=== PATIENT | female | born 1945 | race Caucasian/White ===

== ENCOUNTER 2020-10-19 17:23 | Inpatient (IN) | payer MEDICARE ==
[~2020-10-19 17:23] MED LIST: Heparin 1,000 UNITS/ML VIAL ONE; Iopamidol-370 76% 500 ML 1 ML ONE
--- NOTE | 2020-10-19 17:52 | RAD ---
Chest 2 views HISTORY: Cough. Dyspnea. FINDINGS: No comparison. Cardiac silhouette is predominantly obscured by marked elevation left hemidiaphragm and diaphragmatic hernia favored to contain a portion of the colon. Hemostasis clips evident within the upper abdomen and hiatal hernia. Vertically oriented tube of gas at the upper mediastinum has the appearanc e of gaseous distention of the esophagus or sabina-esophagus. There is prominent rightward convex rotatory scoliotic curvature of the thoracic spine and mediastinu m. Pulmonary vasculature are within normal limits. Subtle ill-defined patchy predominantly peripheral ar eas of infiltrate involve each lung. No lobar consolidation. No evidence of pneumothorax. IMPRESSION : Subtle patchy bilateral infiltrates. Correlate for multifocal viral pneumonitis. Postoperative changes with the appearance of gastric pull-through/sabina-esophagus, with suspected super imposed hiatal hernia.
[2020-10-19] MEDS ORDERED: cefTRIAXone\\ROCEPHIN 1 GM VIAL ONE (18:47)
[2020-10-19] MEDS ORDERED: Dexamethasone 4 mg/ml Vial ONE (18:47)
[2020-10-19 18:56] LABS: #Lymphocytes 1.8 thou/uL (1.20-3.40); #Monocytes 1.1 thou/uL (0.11-0.59); #Neutrophils 5.2 thou/uL (1.40-6.50); %Basophils 0.2 % (0.0-1.0); %Eosinophils 0.1 % (0.0-10.0); %Lymphocytes 22.7 % (21.0-51.0); Hemoglobin 13.2 g/dL (12.0-16.0); Mean Corpuscular HGB CONC 32.5 g/dL (32.0-36.0); Mean Corpuscular Hemoglobin 30.6 pg (27.0-31.0); Mean Platelet Volume 9.3 fL (7.4-10.4); Platelet Count 246 thou/uL (130-400); RBC Distribution Width 12.2 % (11.5-14.5); Red Blood Cell (RBC) Count 4.33 mill/uL (4.20-5.40); White Blood Cell (WBC) Count 8.1 thou/uL (4.8-10.8)
[2020-10-19] MEDS ORDERED: Albuterol 200 PUFF (6.7GM INHALER) ONE (19:03)
[2020-10-19 19:19] LABS: ALT (SGPT) 22 U/L (8-55); AST (SGOT) 42 U/L (5-34); Albumin 3.8 g/dL (3.4-4.8); Alkaline Phosphatase 142 U/L (40-110); Anion Gap 14 mmol/L (10-20); BUN (Urea Nitrogen) 10 mg/dL (9.8-20.1); Bilirubin, Total 0.4 mg/dL (0.2-1.2); Calc. Creatinine Clearance 0 mL/min (70-130); Calcium 9.5 mg/dL (7.8-10.44); Carbon Dioxide 27 mmol/L (23-31); Chloride 97 mmol/L (98-107); Globulin 4.9 g/dL (2.4-3.5); Glucose 139 mg/dL (83-110); Potassium 3.9 mmol/L (3.5-5.1); Protein, Total 8.7 g/dL (6.0-8.3); Sodium 134 mmol/L (136-145)
[2020-10-19] MEDS ORDERED: Ondansetron PF 4 MG/2 ML Vial ONE (20:05)
--- NOTE | 2020-10-19 20:30 | CT ---
CT angiogram chest: 10/19/2020 COMPARISON: None HISTORY: Pneumonia, hypoxia, shortness of breath, history of stomach cancer and esophageal cancer TECHNIQUE: Axial CT imaging at 2.5 mm intervals through the chest with IV contrast using CT angiogram protocol. Coronal and sagittal 3-D reformatted imaging obtained. FINDINGS: The imaged upper abdomen demonstrates no acute findings. There is a large hiatal hernia whi ch includes a significant portion of the transverse colon. The patient appears status post esophagectomy with a gastric pull-through procedure. There is nodularity in the region of the adrenal gland on the left, best seen on axial image 131, wit h nonspecific lobulated adrenal lesion measuring up to 1.9-2.0 cm. Adjacent mildly prominent lymph nodes cannot be excluded. There is distention of the gastric pull-through, with mild internal debris. No axillary lymphadenopathy is seen. No discrete mediastinal or hilar lymphadenopathy. No significant pleural, pericardial, or mediastinal fluid is seen. There is no pulmonary arterial filling defect seen to suggest the presence of acute pulmonary arteria l embolism. There is marked elevation of the left hemidiaphragm. There is partial consolidation/collapse involvin g the left lower lobe abutting the elevated left hemidiaphragm. In addition, there are numerous areas of conspicuous peripheral groundglass opacity including the right lower lobe, right middle lobe , and bilateral upper lobes, suspicious for bilateral Covid pneumonia in the proper clinical setting. Review of the osseous structures demonstrates no worrisome lytic or blastic bone lesions. IMPRESSION: Postoperative changes consistent with esophagectomy and gastric pull-through procedure. N o evidence for acute pulmonary arterial embolism. Partial consolidation of the left lower lobe may signify left lower lobe pneumonia, aspiration, or atelectasis. In addition, there are extensive bilat eral conspicuous areas of peripheral groundglass opacity most concerning for extensive bilateral Covid pneumonia. Clinical correlation is essential. Probable left adrenal nodule, not optimally assessed on this exam. Correlation with prior imaging is advised. No comparison imaging is available at this time.
[2020-10-19 22:20] LABS: SARS-CoV-2 NAA Rapid Test DETECTED (NotDetected)
[2020-10-20] MEDS ORDERED: HYDROcodone/Acetaminophen 5/325 mg Tablet PO PRN (00:45)
[2020-10-20] MEDS ORDERED: cloNIDine 0.1 MG TAB PO PRN (00:45)
[2020-10-20] MEDS ORDERED: Electrolyte Replacement Protocol 1 EACH FS PRN (00:45)
[2020-10-20] MEDS ORDERED: Morphine 2 MG/ML VIAL SLOW IVP PRN (00:45)
[2020-10-20] MEDS ORDERED: Ondansetron ODT 4 MG TAB SL PRN (00:45)
[2020-10-20] MEDS ORDERED: Promethazine HCl 12.5 MG in Sodium Chloride 0.9% 50 ML IVPB PRN (00:45)
[2020-10-20] MEDS ORDERED: Labetalol HCl 100 MG/20 ML VIAL SLOW IVP PRN (00:45)
[2020-10-20] MEDS ORDERED: Ondansetron PF 4 MG/2 ML Vial IVP PRN (00:45)
[2020-10-20] MEDS ORDERED: hydrALAZINE 20 MG/ML VIAL SLOW IVP PRN (00:45)
--- NOTE | 2020-10-20 00:47 | PDOC.HHP ---
Hospitalist HPI - History of Present Illness Shortness of breath History of Present Illness: Patient is a 74 year old female with PMH HTN, arrhythmia, stomach/esophagus cancer who presents to ED for shortness of breath. Patient originally developed symptoms of cough 2 weeks ago, she went to several doctors, had a chest X ray and diagnosed with pneumonia, covid was negative at that time, she had a course of azithromycin and did not improve, she developed worsening shortness of breath and came here, now on NC and satting well. Here, CXR reveals bilateral patchy infiltrates, LLL consolidation, and then had a CTA chest also w/ LLL consolidation and bilateral groundglass opacities concerning for covid. patient admitted on suspicion of covid pneumonia and with hypoxia, covid test pending. given steroid, inhaler, abx in ED. Hospitalist ROS - Review of Systems Constitutional: reports: fever, chills, sweats, weakness, malaise Eyes: denies: pain, vision change, conjunctivae inflammation, eyelid inflammation, redness, other ENT: denies: ear pain, ear discharge, nose pain, nose discharge, nose congestion, mouth pain, mouth swelling, throat pain, throat swelling, other Respiratory: reports: cough, shortness of breath, pleuritic pain, sputum. denies: dry, hemoptysis, SOB with excertion, wheezing, other Cardiovascular: denies: chest pain, palpitations, orthopnea, paroxysmal noc. dyspnea, edema, light headedness, other Gastrointestinal: denies: nausea, vomiting, abdominal pain, diarrhea, constipation, melena, hematochezia, other Genitourinary: denies: dysuria, frequency, incontinence, hematuria, retention, other Musculoskeletal: denies: neck pain, shoulder pain, arm pain, back pain, hand pain, leg pain, foot pain, other Skin: denies: rash, lesions, jayshree, bruising, other Neurological: denies: weakness, numbness, incoordination, change in speech, confusion, seizures, other All other systems reviewed; all pertinent +/- noted in HPI/Subj - Medication Medications: azithromycin 250mg po daily compazine 10mg PO TID PRN nausea candesartan hctz 16-12.5mg daily sotalol 80mg PO BID Hospitalist History - Past Medical History Other Medical History: HTN, arrhythmia, stomach/esophagus cancer - Past Surgical History Other Surgical History: Surgery for stomach and esophagus cancer Surgical history of cholecystectomy Surgical history of hysterectomy - Family History Family History: reports: no pertinent history - Social History Alcohol: reports: None Drugs: reports: none - Exam General Appearance: NAD, awake alert Eye: PERRL, anicteric sclera ENT: normocephalic atraumatic, no oropharyngeal lesions, moist mucosa Neck: supple, symmetric, no JVD, no thyromegaly, no lymphadenopathy, no carotid bruit Heart: RRR, no murmur, no gallops, no rubs, normal peripheral pulses Respiratory: CTAB, no wheezes, no rales, no ronchi, normal chest expansion, no tachypnea, normal percussion Gastrointestinal: soft, non-tender, non-distended, normal bowel sounds, no palpable masses, no hepatomegaly, no splenomegaly, no bruit Extremities: no cyanosis, no clubbing, no edema Skin: normal turgor, no lesions, no rashes Neurological: cranial nerve grossly intact, normal sensation to touch, no weakness, no focal deficits, no new deficit Musculoskeletal: normal tone, normal strength, no muscle wasting Psychiatric: normal affect, normal behavior, A&O x 3 Hospitalist Results - Labs Result Diagrams: 10/20/20 05:05 10/19/20 Unknown Lab results: WBC 8.1 thou/uL (4.8-10.8) 10/19/20 Unknown Hgb 13.2 g/dL (12.0-16.0) 10/19/20 Unknown Hct 40.7 % (36.0-47.0) 10/19/20 Unknown MCV 94.0 fL (78.0-98.0) 10/19/20 Unknown Plt Count 246 thou/uL (130-400) 10/19/20 Unknown Neutrophils % 64.0 % (42.0-75.0) 10/19/20 Unknown Sodium 134 mmol/L (136-145) L 10/19/20 Unknown Potassium 3.9 mmol/L (3.5-5.1) 10/19/20 Unknown Chloride 97 mmol/L (98-107) L 10/19/20 Unknown Carbon Dioxide 27 mmol/L (23-31) 10/19/20 Unknown BUN 10 mg/dL (9.8-20.1) 10/19/20 Unknown Creatinine 0.73 mg/dL (0.6-1.1) 10/19/20 Unknown Glucose 139 mg/dL (83-110) H 10/19/20 Unknown Lactic Acid 1.5 mmol/L (0.5-2.2) 10/19/20 19:39 Calcium 9.5 mg/dL (7.8-10.44) 10/19/20 Unknown Total Bilirubin 0.4 mg/dL (0.2-1.2) 10/19/20 Unknown AST 42 U/L (5-34) H 10/19/20 Unknown ALT 22 U/L (8-55) 10/19/20 Unknown Alkaline Phosphatase 142 U/L (40-110) H 10/19/20 Unknown Serum Total Protein 8.7 g/dL (6.0-8.3) H 10/19/20 Unknown Albumin 3.8 g/dL (3.4-4.8) 10/19/20 Unknown Additional comment: VITAL SIGNS SunOct 19, 2020 17:25 VETO Em, Matilda BP: 213/93 Pulse: 93 Resp: 20 Temp: 98.4 (Oral) Pain: 5 O2 sat: 94 on (Room Air) Time: 10/19/2020 17:25. labs, imaging reports, ED documents reviewed XR Chest Pa & Lat STANDARD Observe DT: SunOct 19, 2020 17:29 CXR2 Chest 2 views HISTORY: Cough. Dyspnea. FINDINGS: No comparison. Cardiac silhouette is predominantly obscured by marked elevation left hemidiaphragm and diaphragmatic hernia favored to contain a portion of the colon. Hemostasis clips evident within the upper abdomen and hiatal hernia. Vertically oriented tube of gas at the upper mediastinum has the appearanc e of gaseous distention of the esophagus or sabina-esophagus. There is prominent rightward convex rotatory scoliotic curvature of the thoracic spine and mediastinu m. Pulmonary vasculature are within normal limits. Subtle ill-defined patchy predominantly peripheral ar eas of infiltrate involve each lung. No lobar consolidation. No evidence of pneumothorax. IMPRESSION : Subtle patchy bilateral infiltrates. Correlate for multifocal viral pneumonitis. Postoperative changes with the appearance of gastric pull-through/sabina-esophagus, with suspected super imposed hiatal hernia. . RADIOLOGY SunOct 19, 2020 18:39 YURIY Koenig William XR Chest Pa & Lat STANDARD Observe DT: SunOct 19, 2020 17:29 CXR2 Chest 2 views HISTORY: Cough. Dyspnea. FINDINGS: No comparison. Cardiac silhouette is predominantly obscured by marked elevation left hemidiaphragm and diaphragmatic hernia favored to contain a portion of the colon. Hemostasis clips evident within the upper abdomen and hiatal hernia. Vertically oriented tube of gas at the upper mediastinum has the appearanc e of gaseous distention of the esophagus or sabina-esophagus. There is prominent rightward convex rotatory scoliotic curvature of the thoracic spine and mediastinu m. Pulmonary vasculature are within normal limits. Subtle ill-defined patchy predominantly peripheral ar eas of infiltrate involve each lung. No lobar consolidation. No evidence of pneumothorax. IMPRESSION : Subtle patchy bilateral infiltrates. Correlate for multifocal viral pneumonitis. Postoperative changes with the appearance of gastric pull-through/sabina-esophagus, with suspected super imposed hiatal hernia. . RADIOLOGY SunOct 19, 2020 21:08 YURIY Koenig William CTA Angio Chest W WO Con Observe DT: SunOct 19, 2020 18:[address] angiogram chest: 10/19/2020 COMPARISON: None HISTORY: Pneumonia, hypoxia, shortness of breath, history of stomach cancer and esophageal cancer TECHNIQUE: Axial CT imaging at 2.5 mm intervals through the chest with IV contrast using CT angiogram protocol. Coronal and sagittal 3-D reformatted imaging obtained. FINDINGS: The imaged upper abdomen demonstrates no acute findings. There is a large hiatal hernia whi ch includes a significant portion of the transverse colon. The patient appears status post esophagectomy with a gastric pull-through procedure. There is nodularity in the region of the adrenal gland on the left, best seen on axial image 131, wit h nonspecific lobulated adrenal lesion measuring up to 1.9-2.0 cm. Adjacent mildly prominent lymph nodes cannot be excluded. There is distention of the gastric pull-through, with mild internal debris. No axillary lymphadenopathy is seen. No discrete mediastinal or hilar lymphadenopathy. No significant pleural, pericardial, or mediastinal fluid is seen. There is no pulmonary arterial filling defect seen to suggest the presence of acute pulmonary arteria l embolism. There is marked elevation of the left hemidiaphragm. There is partial c onsolidation/collapse involvin g the left lower lobe abutting the elevated left hemidiaphragm. In addition, there are numerous areas of conspicuous peripheral groundglass opacity including the right lower lobe, right middle lobe , and bilateral upper lobes, suspicious for bilateral Covid pneumonia in the proper clinical setting. Review of the osseous structures demonstrates no worrisome lytic or blastic bone lesions. IMPRESSION: Postoperative changes consistent with esophagectomy and gastric pull-through procedure. N o evidence for acute pulmonary arterial embolism. Partial consolidation of the left lower lobe may signify left lower lobe pneumonia, aspiration, or atelectasis. In addition, there are extensive bilat eral conspicuous areas of peripheral groundglass opacity most concerning for extensive bilateral Covid pneumonia. Clinical correlation is essential. Probable left adrenal nodule, not optimally assessed on this exam. Correlation with prior imaging is advised. No comparison imaging is available at this time. . Hospitalist H&P A/P - Plan Plan: Patient is a 74 year old female with PMH HTN, arrhythmia, stomach/esophagus cancer who presents to ED for shortness of breath. # bilateral pnuemonia # covid 19 infection Patient originally developed symptoms 2 weeks ago, had a chest X ray and diagnosed with pneumonia, covid was negative at that time, she had a course of azithromycin and did not improve, she developed worsening shortness of breath and came here, now on NC and satting well. Here, CXR reveals bilateral patchy infiltrates, LLL consolidation, and then had a CTA chest also w/ LLL consolidation and bilateral groundglass opacities concerning for covid. patient admitted on suspicion of covid pneumonia and with hypoxia, covid test pending. given steroid, inhaler, abx in ED. - admit to floor - follow up covid 19 test -> POSITIVE - start IV dexamethasone - start IV levaquin - wean o2 as tolerated # HTN - continue home medications # history of arrhtyhmia - cardiac surgeon - continue sotalol DVT/GI ppx
[2020-10-20] MEDS ORDERED: Sotalol HCl 80 MG TAB PO SCH (01:15)
[2020-10-20] MEDS ORDERED: Sotalol HCl 80 MG TAB ONE (01:33)
[2020-10-20] MEDS ORDERED: Azithromycin 500 MG in Sodium Chloride 0.9% 250 ML 250 ML IVPB SCH (02:00)
[2020-10-20 05:51] LABS: #Lymphocytes 0.6 thou/uL (1.20-3.40); #Monocytes 0.3 thou/uL (0.11-0.59); #Neutrophils 1.4 thou/uL (1.40-6.50); %Basophils 0.6 % (0.0-1.0); %Eosinophils 0.2 % (0.0-10.0); %Lymphocytes 25.6 % (21.0-51.0); %Monocytes 12.7 % (0.0-10.0); %Neutrophils 60.9 % (42.0-75.0); Hemoglobin 12.2 g/dL (12.0-16.0); Mean Corpuscular HGB CONC 32.5 g/dL (32.0-36.0); Mean Corpuscular Hemoglobin 30.5 pg (27.0-31.0); Mean Corpuscular Volume 93.9 fL (78.0-98.0); Mean Platelet Volume 9.2 fL (7.4-10.4); Platelet Count 164 thou/uL (130-400); RBC Distribution Width 12.1 % (11.5-14.5); Red Blood Cell (RBC) Count 3.99 mill/uL (4.20-5.40); White Blood Cell (WBC) Count 2.2 thou/uL (4.8-10.8)
[2020-10-20] MEDS: Hydrochlorothiazide 25 MG TAB PO SCH ×2 (08:38→20:41)
[2020-10-20] MEDS: Losartan 25 MG TAB PO SCH ×2 (08:43→20:42)
[2020-10-20] MEDS: Famotidine 20 MG TAB PO SCH ×2 (08:45→20:40)
[2020-10-20] MEDS: Polyethylene Glycol 3350 17 GM Packet PO SCH ×2 (08:45→11:26)
[2020-10-20] MEDS: Sotalol HCl 80 MG TAB PO SCH ×2 (08:45→20:42)
[2020-10-20 09:13] LABS: Chloride 100 mmol/L (98-107); Potassium 4.1 mmol/L (3.5-5.1); Sodium 137 mmol/L (136-145)
[2020-10-20 09:14] LABS: Calcium 8.9 mg/dL (7.8-10.44); Glucose 185 mg/dL (83-110)
[2020-10-20 09:16] LABS: Anion Gap 14 mmol/L (10-20); Carbon Dioxide 27 mmol/L (23-31)
[2020-10-20 09:18] LABS: BUN (Urea Nitrogen) 11 mg/dL (9.8-20.1); Calc. Creatinine Clearance 0 mL/min (70-130)
[2020-10-20 09:20] LABS: Magnesium 1.9 mg/dL (1.6-2.6)
[2020-10-20] MEDS ORDERED: Magnesium 2 GM/50 ML 2 GM in Premix Bag 1 BAG IVPB SCH (10:15)
[2020-10-20] MEDS: Guaifenesin DM 100-10/5 ML UDCUP PO PRN (11:55)
[2020-10-20] MEDS ORDERED: Pharmacy to Dose REMDESIVIR IVPB PRN (13:44)
--- NOTE | 2020-10-20 14:03 | PDOC.HOSPP ---
- Subjective Encounter Date: 10/20/20 Encounter Time: 11:20 Subjective: pt up in bed no complains - Objective Vital Signs & Weight: Vital Signs (12 hours) Temp Pulse Pulse Pulse Resp BP BP 10/20/20 12:25 68 134/64 10/20/20 12:00 97.8 F 58 L 18 10/20/20 09:58 70 68 149/76 H 176/74 H 10/20/20 08:45 98.2 F 63 20 10/20/20 04:00 98.0 F 63 16 BP BP Pulse Ox Pulse Ox Pulse Ox 10/20/20 12:25 98 10/20/20 12:00 172/76 H 99 10/20/20 09:58 94 L 92 L 10/20/20 08:45 178/75 H 93 L 10/20/20 04:00 137/63 93 L Weight Weight 2.31 oz I&O: 10/19/20 10/20/20 10/21/20 06:59 06:59 06:59 Intake Total 240 Output Total 400 Balance -160 Result Diagrams: 10/20/20 05:05 10/20/20 08:41 Hospitalist ROS - Review of Systems Cardiovascular: denies: chest pain, palpitations, orthopnea, paroxysmal noc. dyspnea, edema, light headedness, other Gastrointestinal: denies: nausea, vomiting, abdominal pain, diarrhea, constipation, melena, hematochezia, other Genitourinary: denies: dysuria, frequency, incontinence, hematuria, retention, other - Medication Medications: Active Medications Generic Name Dose Route Start Last Admin Trade Name Freq PRN Reason Stop Dose Admin Famotidine 20 mg 10/20/20 09:00 10/20/20 08:45 Famotidine 20 Mg Tab PO 20 mg BID GREGORIO Administration Guaifenesin/Dextromethorphan 15 ml 10/20/20 00:45 10/20/20 11:55 Guaifenesin Dm 100-10/5 Ml Udcup PO 15 ml Q4H PRN Administration Cough Hydrochlorothiazide 12.5 mg 10/20/20 09:00 10/20/20 08:38 Hydrochlorothiazide 25 Mg Tab PO 12.5 mg BID GREGORIO Administration Doxycycline Hyclate 100 mg/ 100 mls @ 100 mls/hr 10/20/20 10:00 10/20/20 11:16 Sodium Chloride IVPB 100 mls 1000,2200 GREGORIO Administration Losartan Potassium 50 mg 10/20/20 09:00 10/20/20 08:43 Losartan 25 Mg Tab PO 50 mg BID GREGORIO Administration Polyethylene Glycol 17 gm 10/20/20 09:00 10/20/20 11:26 Polyethylene Glycol 3350 17 Gm Packet PO Not Given DAILY GREGORIO Sotalol HCl 80 mg 10/20/20 09:00 10/20/20 08:45 Sotalol Hcl 80 Mg Tab PO 80 mg BID GREGORIO Administration - Exam Heart: negative: RRR, no murmur, no gallops, no rubs, normal peripheral pulses, irregular, diminshed peripheral pulses, murmur present, II/IV, III/IV Respiratory: negative: CTAB, no wheezes, no rales, no ronchi, normal chest expansion, no tachypnea, normal percussion, rales, rhonchi, tachypneic, wheezes Gastrointestinal: negative: soft, non-tender, non-distended, normal bowel sounds, no palpable masses, no hepatomegaly, no splenomegaly, no bruit, no guarding, no rigidity, tender to palpation, distended, diminished bowl sounds, voluntary guarding Extremities: negative: no cyanosis, no clubbing, no edema, 1+ LE edema, 2+ LE edema, clubbing Hosp A/P (1) Acute respiratory failure with hypoxia Code(s): J96.01 - ACUTE RESPIRATORY FAILURE WITH HYPOXIA Status: Acute (2) COVID-19 Code(s): U07.1 - COVID-19 Status: Acute (3) Pneumonia Code(s): J18.9 - PNEUMONIA, UNSPECIFIED ORGANISM Status: Acute (4) HTN (hypertension) Code(s): I10 - ESSENTIAL (PRIMARY) HYPERTENSION Status: Acute - Plan Spoke with patient she states that she has had 3 Covid negative test. Her last test was Sunday of last week. She states that she has been treated with azithromycin for pneumonia. I spoke with the patient's son updated him that she meets the criteria for remdesivir since she was negative last week Sunday. Patient's daughter that she was living with is currently positive and she was tested last week Sunday. Side effects discussed with the patient.
[2020-10-20] MEDS ORDERED: REMDESIVIR (EUA) 200 MG in Sodium Chloride 0.9% 250 ML 210 ML IV SCH (16:00)
[2020-10-20] MEDS: Dexamethasone 4 mg/ml Vial SLOW IVP SCH (16:26)
[2020-10-20] MEDS: Acetaminophen 325 MG TAB PO PRN (18:31)
[2020-10-20] MEDS: Enoxaparin Sodium 40 MG/0.4 ML SYRINGE SC SCH ×2 (20:40→21:04)
[2020-10-20] MEDS ORDERED: Azithromycin 500 MG in Syringe 0 ML IVPB SCH (21:00)
[2020-10-20] MEDS ORDERED: cefTRIAXone\\ROCEPHIN 1 GM in Sodium Chloride 0.9% 100 ML IVPB SCH (21:00)
[2020-10-21 05:34] LABS: #Lymphocytes 0.7 thou/uL (1.20-3.40); #Monocytes 0.6 thou/uL (0.11-0.59); #Neutrophils 4.4 thou/uL (1.40-6.50); %Lymphocytes 12.2 % (21.0-51.0); %Monocytes 10.7 % (0.0-10.0); Hemoglobin 11.8 g/dL (12.0-16.0); Mean Corpuscular HGB CONC 32.7 g/dL (32.0-36.0); Mean Corpuscular Hemoglobin 30.7 pg (27.0-31.0); Mean Corpuscular Volume 93.7 fL (78.0-98.0); Mean Platelet Volume 9.2 fL (7.4-10.4); Platelet Count 172 thou/uL (130-400); Red Blood Cell (RBC) Count 3.85 mill/uL (4.20-5.40); White Blood Cell (WBC) Count 5.7 thou/uL (4.8-10.8)
[2020-10-21 06:00] LABS: Anion Gap 14 mmol/L (10-20); BUN (Urea Nitrogen) 14 mg/dL (9.8-20.1); Calc. Creatinine Clearance 0 mL/min (70-130); Carbon Dioxide 29 mmol/L (23-31); Chloride 100 mmol/L (98-107); Glucose 137 mg/dL (83-110); Magnesium 1.9 mg/dL (1.6-2.6); Sodium 139 mmol/L (136-145)
[2020-10-21] MEDS: Sotalol HCl 80 MG TAB PO SCH ×2 (09:05→20:23)
[2020-10-21] MEDS: Famotidine 20 MG TAB PO SCH ×2 (09:06→20:22)
[2020-10-21] MEDS: Hydrochlorothiazide 25 MG TAB PO SCH ×2 (09:06→20:23)
[2020-10-21] MEDS: Losartan 25 MG TAB PO SCH ×2 (09:07→20:23)
[2020-10-21] MEDS: Magnesium 2 GM/50 ML 2 GM in Premix Bag 1 BAG IVPB SCH ×2 (09:10→12:07)
[2020-10-21] MEDS: Ondansetron PF 4 MG/2 ML Vial IVP PRN ×3 (09:11→20:25)
[2020-10-21 09:17] LABS: ALT (SGPT) 24 U/L (8-55); AST (SGOT) 47 U/L (5-34); Albumin 3.2 g/dL (3.4-4.8); Alkaline Phosphatase 116 U/L (40-110); Bilirubin, Direct 0.2 mg/dL (0.1-0.3); Bilirubin, Total 0.3 mg/dL (0.2-1.2); Protein, Total 7.2 g/dL (6.0-8.3)
[2020-10-21] MEDS: Polyethylene Glycol 3350 17 GM Packet PO SCH (10:51)
[2020-10-21] MEDS: Guaifenesin DM 100-10/5 ML UDCUP PO PRN ×2 (12:28→17:41)
--- NOTE | 2020-10-21 14:26 | PDOC.HOSPP ---
- Subjective Encounter Date: 10/21/20 Encounter Time: 10:20 Subjective: Patient up in bed states she feels little nauseated today. - Objective Vital Signs & Weight: Vital Signs (12 hours) Temp Pulse Resp BP BP Pulse Ox Pulse Ox 10/21/20 12:00 97.7 F 66 20 150/67 H 94 L 10/21/20 11:41 157/72 H 82 L 10/21/20 08:00 98.0 F 68 16 180/78 H 95 10/21/20 04:15 154/70 H 10/21/20 03:37 97.5 F L 61 16 169/74 H 95 Pulse Ox 10/21/20 12:00 10/21/20 11:41 97 10/21/20 08:00 10/21/20 04:15 10/21/20 03:37 Weight Weight 2.31 oz I&O: 10/20/20 10/21/20 10/22/20 06:59 06:59 06:59 Intake Total 240 450 Output Total 400 Balance -160 450 Result Diagrams: 10/21/20 05:09 10/21/20 05:09 Hospitalist ROS - Review of Systems Cardiovascular: denies: chest pain, palpitations, orthopnea, paroxysmal noc. dyspnea, edema, light headedness, other Gastrointestinal: reports: nausea Genitourinary: denies: dysuria, frequency, incontinence, hematuria, retention, other Musculoskeletal: denies: neck pain, shoulder pain, arm pain, back pain, hand pain, leg pain, foot pain, other - Medication Medications: Active Medications Generic Name Dose Route Start Last Admin Trade Name Marekq PRN Reason Stop Dose Admin Acetaminophen 650 mg 10/20/20 00:45 10/20/20 18:31 Acetaminophen 325 Mg Tab PO 650 mg Q4H PRN Administration Headache/Fever/Mild Pain (1-3) Dexamethasone 6 mg 10/20/20 18:00 10/20/20 16:26 Dexamethasone 4 Mg/Ml Vial SLOW IVP 6 mg Q24H GREGORIO Administration Enoxaparin Sodium 40 mg 10/20/20 21:00 10/20/20 21:04 Enoxaparin Sodium 40 Mg/0.4 Ml Syringe SC Not Given 2100 GREGORIO Famotidine 20 mg 10/20/20 09:00 10/21/20 09:06 Famotidine 20 Mg Tab PO 20 mg BID GREGORIO Administration Guaifenesin/Dextromethorphan 15 ml 10/20/20 00:45 10/21/20 12:28 Guaifenesin Dm 100-10/5 Ml Udcup PO 15 ml Q4H PRN Administration Cough Hydrochlorothiazide 12.5 mg 10/20/20 09:00 10/21/20 09:06 Hydrochlorothiazide 25 Mg Tab PO 12.5 mg BID GREGORIO Administration Doxycycline Hyclate 100 mg/ 100 mls @ 100 mls/hr 10/20/20 10:00 10/20/20 22:13 Sodium Chloride IVPB 100 mls 1000,2200 GREGORIO Administration Losartan Potassium 50 mg 10/20/20 09:00 10/21/20 09:07 Losartan 25 Mg Tab PO 50 mg BID GREGORIO Administration Ondansetron HCl 4 mg 10/20/20 00:45 10/21/20 09:11 Ondansetron Pf 4 Mg/2 Ml Vial IVP 4 mg Q6H PRN Administration Nausea/Vomiting use 1st Polyethylene Glycol 17 gm 10/20/20 09:00 10/21/20 10:51 Polyethylene Glycol 3350 17 Gm Packet PO Not Given DAILY GREGORIO Sodium Chloride 10 ml 10/21/20 09:00 10/21/20 09:08 Flush - Normal Saline 10 Ml Syringe IVF 10 ml Q12HR GREGORIO Administration Sotalol HCl 80 mg 10/20/20 09:00 10/21/20 09:05 Sotalol Hcl 80 Mg Tab PO 80 mg BID GREGORIO Administration - Exam Neck: negative: supple, symmetric, no JVD, no thyromegaly, no lymphadenopathy, no carotid bruit, JVD Heart: negative: RRR, no murmur, no gallops, no rubs, normal peripheral pulses, irregular, diminshed peripheral pulses, murmur present, II/IV, III/IV Respiratory: negative: CTAB, no wheezes, no rales, no ronchi, normal chest expansion, no tachypnea, normal percussion, rales, rhonchi, tachypneic, wheezes Gastrointestinal: negative: soft, non-tender, non-distended, normal bowel sounds, no palpable masses, no hepatomegaly, no splenomegaly, no bruit, no guarding, no rigidity, tender to palpation, distended, diminished bowl sounds, voluntary guarding Hosp A/P (1) Acute respiratory failure with hypoxia Code(s): J96.01 - ACUTE RESPIRATORY FAILURE WITH HYPOXIA Status: Acute (2) COVID-19 Code(s): U07.1 - COVID-19 Status: Acute (3) Pneumonia Code(s): J18.9 - PNEUMONIA, UNSPECIFIED ORGANISM Status: Acute (4) HTN (hypertension) Code(s): I10 - ESSENTIAL (PRIMARY) HYPERTENSION Status: Acute - Plan Spoke with patient she states that she has had 3 Covid negative test. Her last test was Sunday of last week. She states that she has been treated with azithromycin for pneumonia. I spoke with the patient's son updated him that she meets the criteria for remdesivir since she was negative last week Sunday. Patient's daughter that she was living with is currently positive and she was tested last week Sunday. Side effects discussed with the patient. 10/21 patient started on remdesivir today day 2 of remdesivir. We will continue steroids for now. Patient on DVT prophylaxis. Patient's oxygen saturations around 90% on 2 L. Patient had 10 beats of V. tach per monitor tach unable to get an IV access patient is currently getting PICC magnesium is stable.
--- NOTE | 2020-10-21 15:22 | SPC ---
Left upper extremity PICC placement sonographic guided HISTORY: Pneumonia. FINDINGS: After explaining the procedure and answering all questions, the left upper extremity was pr epped and draped in usual sterile fashion. Sterile technique, buffered local anesthesia, sonographic guidance, and a 22-gauge needle were used t o carefully access the brachial vein. Guidewire initially passed easily. 5 Vietnamese sheath was placed. Catheter was trimmed to 46 cm. Cathete r was unable to be passed along the wire. Injection of a small amount of contrast showed that the wire had entered a small vein just lateral to the main basilic vein. Using the angiographic images, t he wire was carefully teased through a larger branch vein and into the main brachial vein outflow. 5 Vietnamese catheter was placed to the level of the cavoatrial junction. Flushed and secured externally. Patient tolerated the procedure well and was returned in unchanged condition. IMPRESSION : Left upper extremity PICC is ready for use.
[2020-10-21] MEDS: REMDESIVIR (EUA) 100 MG in Sodium Chloride 0.9% 250 ML 230 ML IV SCH (17:41)
[2020-10-21] MEDS: Dexamethasone 4 mg/ml Vial SLOW IVP SCH (18:25)
[2020-10-21] MEDS: Enoxaparin Sodium 40 MG/0.4 ML SYRINGE SC SCH ×2 (20:24→20:42)
[2020-10-21] MEDS: Acetaminophen 325 MG TAB PO PRN (20:25)
[2020-10-22] MEDS: Ondansetron PF 4 MG/2 ML Vial IVP PRN ×2 (04:04→13:56)
[2020-10-22 05:39] LABS: #Lymphocytes 0.6 thou/uL (1.20-3.40); #Monocytes 0.6 thou/uL (0.11-0.59); #Neutrophils 6.3 thou/uL (1.40-6.50); %Eosinophils 0.1 % (0.0-10.0); %Lymphocytes 7.8 % (21.0-51.0); %Monocytes 8.5 % (0.0-10.0); %Neutrophils 83.6 % (42.0-75.0); Hemoglobin 11.9 g/dL (12.0-16.0); Mean Corpuscular Hemoglobin 29.8 pg (27.0-31.0); Mean Corpuscular Volume 93.3 fL (78.0-98.0); Mean Platelet Volume 9.5 fL (7.4-10.4); Platelet Count 187 thou/uL (130-400); White Blood Cell (WBC) Count 7.5 thou/uL (4.8-10.8)
[2020-10-22 06:01] LABS: Anion Gap 17 mmol/L (10-20); BUN (Urea Nitrogen) 23 mg/dL (9.8-20.1); Calc. Creatinine Clearance 0 mL/min (70-130); Calcium 8.9 mg/dL (7.8-10.44); Carbon Dioxide 25 mmol/L (23-31); Chloride 95 mmol/L (98-107); Glucose 205 mg/dL (83-110); Magnesium 1.7 mg/dL (1.6-2.6); Potassium 4.1 mmol/L (3.5-5.1); Sodium 133 mmol/L (136-145)
[2020-10-22] MEDS ORDERED: Magnesium 2 GM/50 ML 2 GM in Premix Bag 1 BAG IVPB SCH ×2 (06:45→20:00)
[2020-10-22] MEDS: Polyethylene Glycol 3350 17 GM Packet PO SCH ×2 (09:41→10:11)
[2020-10-22] MEDS: Famotidine 20 MG TAB PO SCH (09:41)
[2020-10-22] MEDS: Hydrochlorothiazide 25 MG TAB PO SCH ×2 (09:41→19:26)
[2020-10-22] MEDS: Losartan 25 MG TAB PO SCH ×2 (09:42→19:27)
[2020-10-22] MEDS: Sotalol HCl 80 MG TAB PO SCH ×2 (09:53→19:26)
[2020-10-22 13:33] LABS: ALT (SGPT) 28 U/L (8-55); AST (SGOT) 39 U/L (5-34); Albumin 3.3 g/dL (3.4-4.8); Alkaline Phosphatase 122 U/L (40-110); Bilirubin, Direct 0.3 mg/dL (0.1-0.3); Bilirubin, Total 0.5 mg/dL (0.2-1.2); Protein, Total 7.6 g/dL (6.0-8.3)
[2020-10-22] MEDS: REMDESIVIR (EUA) 100 MG in Sodium Chloride 0.9% 250 ML 230 ML IV SCH (17:15)
--- NOTE | 2020-10-22 17:19 | PDOC.HOSPP ---
- Subjective Encounter Date: 10/22/20 Encounter Time: 15:00 Subjective: pt up in bed no complains - Objective Vital Signs & Weight: Vital Signs (12 hours) Temp Pulse Resp BP BP BP Pulse Ox 10/22/20 16:35 98.1 F 63 20 158/66 H 94 L 10/22/20 12:35 97.7 F 63 20 120/56 L 91 L 10/22/20 09:41 92 L 10/22/20 08:20 98.1 F 54 L 18 119/60 92 L 10/22/20 06:06 65 20 129/58 L 94 L Weight Weight 2.293 oz I&O: 10/21/20 10/22/20 10/23/20 06:59 06:59 06:59 Intake Total 450 Balance 450 Result Diagrams: 10/22/20 05:03 10/22/20 05:03 Hospitalist ROS - Review of Systems Respiratory: denies: cough, dry, shortness of breath, hemoptysis, SOB with excertion, pleuritic pain, sputum, wheezing, other Cardiovascular: denies: chest pain, palpitations, orthopnea, paroxysmal noc. dyspnea, edema, light headedness, other Gastrointestinal: denies: nausea, vomiting, abdominal pain, diarrhea, constipation, melena, hematochezia, other - Medication Medications: Active Medications Generic Name Dose Route Start Last Admin Trade Name Freq PRN Reason Stop Dose Admin Acetaminophen 650 mg 10/20/20 00:45 10/21/20 20:25 Acetaminophen 325 Mg Tab PO 650 mg Q4H PRN Administration Headache/Fever/Mild Pain (1-3) Dexamethasone 6 mg 10/20/20 18:00 10/21/20 18:25 Dexamethasone 4 Mg/Ml Vial SLOW IVP 6 mg Q24H GREGORIO Administration Enoxaparin Sodium 40 mg 10/20/20 21:00 10/21/20 20:42 Enoxaparin Sodium 40 Mg/0.4 Ml Syringe SC Not Given 2100 GREGORIO Famotidine 20 mg 10/20/20 09:00 10/22/20 09:41 Famotidine 20 Mg Tab PO 20 mg BID GREGORIO Administration Guaifenesin/Dextromethorphan 15 ml 10/20/20 00:45 10/21/20 17:41 Guaifenesin Dm 100-10/5 Ml Udcup PO 15 ml Q4H PRN Administration Cough Hydralazine HCl 10 mg 10/20/20 00:45 10/21/20 18:35 Hydralazine 20 Mg/Ml Vial SLOW IVP 10 mg Q6H PRN Administration SBP GREATER THAN 160 Hydrochlorothiazide 12.5 mg 10/20/20 09:00 10/22/20 09:41 Hydrochlorothiazide 25 Mg Tab PO 12.5 mg BID GREGORIO Administration Remdesivir 100 mg/ Sodium 250 mls @ 250 mls/hr 10/21/20 16:00 10/22/20 17:15 Chloride IV 10/24/20 16:59 250 mls 1600 GREGORIO Administration Doxycycline Hyclate 100 mg/ 100 mls @ 100 mls/hr 10/21/20 17:00 10/22/20 04:04 Sodium Chloride IVPB 100 mls 0500,1700 GREGORIO Administration Labetalol HCl 20 mg 10/20/20 00:45 10/21/20 16:19 Labetalol Hcl 100 Mg/20 Ml Vial SLOW IVP 20 mg Q4H PRN Administration SBP > 160 use first Losartan Potassium 50 mg 10/20/20 09:00 10/22/20 09:42 Losartan 25 Mg Tab PO 50 mg BID GREGORIO Administration Ondansetron HCl 4 mg 10/20/20 00:45 10/22/20 13:56 Ondansetron Pf 4 Mg/2 Ml Vial IVP 4 mg Q6H PRN Administration Nausea/Vomiting use 1st Polyethylene Glycol 17 gm 10/20/20 09:00 10/22/20 10:11 Polyethylene Glycol 3350 17 Gm Packet PO Not Given DAILY GREGORIO Sodium Chloride 10 ml 10/21/20 09:00 10/22/20 09:42 Flush - Normal Saline 10 Ml Syringe IVF 10 ml Q12HR GREGORIO Administration Sotalol HCl 80 mg 10/20/20 09:00 10/22/20 09:53 Sotalol Hcl 80 Mg Tab PO Not Given BID GREGORIO - Exam Neck: negative: supple, symmetric, no JVD, no thyromegaly, no lymphadenopathy, no carotid bruit, JVD Heart: negative: RRR, no murmur, no gallops, no rubs, normal peripheral pulses, irregular, diminshed peripheral pulses, murmur present, II/IV, III/IV Respiratory: negative: CTAB, no wheezes, no rales, no ronchi, normal chest expansion, no tachypnea, normal percussion, rales, rhonchi, tachypneic, wheezes Gastrointestinal: negative: soft, non-tender, non-distended, normal bowel sounds, no palpable masses, no hepatomegaly, no splenomegaly, no bruit, no guarding, no rigidity, tender to palpation, distended, diminished bowl sounds, voluntary guarding Hosp A/P (1) Acute respiratory failure with hypoxia Code(s): J96.01 - ACUTE RESPIRATORY FAILURE WITH HYPOXIA Status: Acute (2) COVID-19 Code(s): U07.1 - COVID-19 Status: Acute (3) Pneumonia Code(s): J18.9 - PNEUMONIA, UNSPECIFIED ORGANISM Status: Acute (4) HTN (hypertension) Code(s): I10 - ESSENTIAL (PRIMARY) HYPERTENSION Status: Acute - Plan Spoke with patient she states that she has had 3 Covid negative test. Her last test was Sunday of last week. She states that she has been treated with azithromycin for pneumonia. I spoke with the patient's son updated him that she meets the criteria for remdesivir since she was negative last week Sunday. Patient's daughter that she was living with is currently positive and she was tested last week Sunday. Side effects discussed with the patient. 10/21 patient started on remdesivir today day 2 of remdesivir. We will continue steroids for now. Patient on DVT prophylaxis. Patient's oxygen saturations around 90% on 2 L. Patient had 10 beats of V. tach per monitor tach unable to get an IV access patient is currently getting PICC magnesium is stable. 10/22 pt on day 3 of remdesivir. will continue steroids for now. pt states that she feels well today. she had no cardiac events.
[2020-10-22] MEDS: Dexamethasone 4 mg/ml Vial SLOW IVP SCH (18:29)
[2020-10-22] MEDS: Benzonatate 100 MG CAP PO PRN (18:29)
[2020-10-22] MEDS: Acetaminophen 325 MG TAB PO PRN (18:35)
[2020-10-22] MEDS: Doxycycline 100 MG CAP PO SCH (19:26)
[2020-10-22] MEDS: Enoxaparin Sodium 40 MG/0.4 ML SYRINGE SC SCH (19:45)
[2020-10-23 05:46] LABS: Phosphorus 3.7 mg/dL (2.3-4.7)
[2020-10-23] MEDS: Ondansetron PF 4 MG/2 ML Vial IVP PRN ×3 (07:33→18:04)
[2020-10-23] MEDS: Hydrochlorothiazide 25 MG TAB PO SCH ×2 (09:20→19:57)
[2020-10-23] MEDS: Doxycycline 100 MG CAP PO SCH ×2 (09:20→20:00)
[2020-10-23] MEDS: Losartan 25 MG TAB PO SCH ×2 (09:21→20:05)
[2020-10-23] MEDS: Polyethylene Glycol 3350 17 GM Packet PO SCH (09:22)
[2020-10-23] MEDS: Sotalol HCl 80 MG TAB PO SCH ×2 (09:22→19:58)
[2020-10-23] MEDS: Benzonatate 100 MG CAP PO PRN ×2 (09:24→17:17)
--- NOTE | 2020-10-23 10:20 | EKG ---
Test Reason : Blood Pressure : / mmHG Vent. Rate : 084 BPM Atrial Rate : 084 BPM P-R Int : 126 ms QRS Dur : 074 ms QT Int : 376 ms P-R-T Axes : 033 -03 050 degrees QTc Int : 444 ms Sinus rhythm with Premature atrial complexes Left ventricular hypertrophy with repolarization abnormality Abnormal ECG Confirmed by CHRISTINE DICK [id number]), development editor MARY BURNS ([id number] on 10/23/2020 10:20:15 AM Referred By: Confirmed By:CHRISTINE Garcia
[2020-10-23] MEDS: Guaifenesin DM 100-10/5 ML UDCUP PO PRN ×2 (14:31→18:03)
[2020-10-23] MEDS: REMDESIVIR (EUA) 100 MG in Sodium Chloride 0.9% 250 ML 230 ML IV SCH (16:02)
[2020-10-23] MEDS: Dexamethasone 4 mg/ml Vial SLOW IVP SCH (16:02)
[2020-10-23] MEDS: Acetaminophen 325 MG TAB PO PRN (17:17)
--- NOTE | 2020-10-23 17:41 | PDOC.HOSPP ---
- Subjective Encounter Date: 10/23/20 Encounter Time: 15:30 Subjective: Patient seen and examined for respiratory failure due to COVID-19 pneumonia. Requiring supplemental oxygen. Feels generally weak and fatigue. Denies any nausea or vomiting. - Objective Vital Signs & Weight: Vital Signs (12 hours) Temp Pulse Resp BP BP Pulse Ox 10/23/20 16:00 96.5 F L 71 18 133/63 99 10/23/20 11:45 138/68 10/23/20 11:12 97.6 F 57 L 16 148/69 H 91 L Weight Weight 145 lb 11.609 oz I&O: 10/22/20 10/23/20 10/24/20 06:59 06:59 06:59 Intake Total 800 Output Total 1900 Balance -1100 Result Diagrams: 10/22/20 05:03 10/22/20 05:03 Additional Labs: Abnormal Lab Results - Last 48 hrs 10/22/20 05:03: Sodium 133 L, Chloride 95 L, BUN 23 H 10/22/20 05:03: RBC 4.00 L, Hgb 11.9 L, Neutrophils % 83.6 H, Lymphocytes % 7.8 L, Lymphocytes # 0.6 L, Monocytes # 0.6 H 10/22/20 05:03: C-Reactive Protein 5.32 H 10/22/20 13:01: AST 39 H, Alkaline Phosphatase 122 H, Albumin 3.3 L Microbiology - Entire Visit 10/19/20 18:42 Venous blood - Left Arm Blood Culture - Preliminary NO GROWTH AT 48 HOURS 10/19/20 19:05 Venous blood - Left Arm Blood Culture - Preliminary NO GROWTH AT 48 HOURS Radiology Reviewed by me: Yes (CTAextensive bilateral pneumonia) EKG Reviewed by me: Yes (Sinus rhythm on telemetry) Hospitalist ROS - Review of Systems Cardiovascular: denies: chest pain, palpitations, orthopnea, paroxysmal noc. dyspnea, edema, light headedness, other Gastrointestinal: denies: nausea, vomiting, abdominal pain, diarrhea, constipation, melena, hematochezia, other - Medication Medications: Active Medications Generic Name Dose Route Start Last Admin Trade Name Freq PRN Reason Stop Dose Admin Acetaminophen 650 mg 10/20/20 00:45 10/23/20 17:17 Acetaminophen 325 Mg Tab PO 650 mg Q4H PRN Administration Headache/Fever/Mild Pain (1-3) Benzonatate 100 mg 10/22/20 17:50 10/23/20 17:17 Benzonatate 100 Mg Cap PO 100 mg TIDPRN PRN Administration Cough Dexamethasone 6 mg 10/20/20 18:00 10/23/20 16:02 Dexamethasone 4 Mg/Ml Vial SLOW IVP 6 mg Q24H GREGORIO Administration Doxycycline Hyclate 100 mg 10/22/20 21:00 10/23/20 09:20 Doxycycline 100 Mg Cap PO 100 mg BID GREGORIO Administration Enoxaparin Sodium 40 mg 10/20/20 21:00 10/22/20 19:45 Enoxaparin Sodium 40 Mg/0.4 Ml Syringe SC Not Given 2100 GREGORIO Guaifenesin/Dextromethorphan 15 ml 10/20/20 00:45 10/23/20 14:31 Guaifenesin Dm 100-10/5 Ml Udcup PO 15 ml Q4H PRN Administration Cough Hydralazine HCl 10 mg 10/20/20 00:45 10/21/20 18:35 Hydralazine 20 Mg/Ml Vial SLOW IVP 10 mg Q6H PRN Administration SBP GREATER THAN 160 Hydrochlorothiazide 12.5 mg 10/20/20 09:00 10/23/20 09:20 Hydrochlorothiazide 25 Mg Tab PO 12.5 mg BID GREGORIO Administration Remdesivir 100 mg/ Sodium 250 mls @ 250 mls/hr 10/21/20 16:00 10/23/20 16:02 Chloride IV 10/24/20 16:59 250 mls 1600 GREGORIO Administration Labetalol HCl 20 mg 10/20/20 00:45 10/21/20 16:19 Labetalol Hcl 100 Mg/20 Ml Vial SLOW IVP 20 mg Q4H PRN Administration SBP > 160 use first Losartan Potassium 50 mg 10/20/20 09:00 10/23/20 09:21 Losartan 25 Mg Tab PO 50 mg BID GREGORIO Administration Ondansetron HCl 4 mg 10/20/20 00:45 10/23/20 12:43 Ondansetron Pf 4 Mg/2 Ml Vial IVP 4 mg Q6H PRN Administration Nausea/Vomiting use 1st Pantoprazole Sodium 40 mg 10/23/20 09:00 10/23/20 09:22 Pantoprazole 40 Mg Tab PO 40 mg DAILY GREGORIO Administration Polyethylene Glycol 17 gm 10/20/20 09:00 10/23/20 09:22 Polyethylene Glycol 3350 17 Gm Packet PO Not Given DAILY GREGORIO Sodium Chloride 10 ml 10/21/20 09:00 10/23/20 12:43 Flush - Normal Saline 10 Ml Syringe IVF 10 ml Q12HR GREGORIO Administration Sotalol HCl 80 mg 10/20/20 09:00 10/23/20 09:22 Sotalol Hcl 80 Mg Tab PO Not Given BID GREGORIO - Exam General Appearance: awake alert, ill appearing Neck: supple, no JVD Heart: RRR, no gallops Respiratory: no wheezes, rales, rhonchi Gastrointestinal: soft, non-tender, normal bowel sounds Extremities: no cyanosis Neurological: no new deficit Musculoskeletal: generalized weakness Psychiatric: normal affect, A&O x 3 Hosp A/P - Plan DVT proph w/SCDs 74-year-old female with hypertension, esophageal cancer arrhythmias in the past presented to the emergency room on 10/19 with shortness of breath and cough. Her work-up was consistent with bilateral pneumonia. She was started on O2 supplementation with dexamethasone as well as remdesivir. 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 Impression: Acute hypoxic respiratory failure due to extensive bilateral COVID-19 pneumonia Nonsustained ventricular tachycardia Hypertension Hypomagnesemia Chronic anemia suspected due to nutritional deficiency CKD stage II Hyponatremia Abnormal LFTs probably due to COVID-19 Poor IV access - s/p PICC line Plan: Continue remdesivirday 4 today. Will continue dexamethasone. Continue sotalol. A.m. labs including inflammatory markers. Patient is currently on 3.5 L O2 nasal cannula. Blood cultures negative. Continue Lovenox for DVT prophylaxis. Continue GI prophylaxis
[2020-10-23] MEDS: Enoxaparin Sodium 40 MG/0.4 ML SYRINGE SC SCH (20:13)
[2020-10-24] MEDS: Ondansetron PF 4 MG/2 ML Vial IVP PRN ×4 (00:47→23:22)
[2020-10-24 05:10] LABS: #Lymphocytes 0.7 thou/uL (1.20-3.40); #Monocytes 0.9 thou/uL (0.11-0.59); #Neutrophils 10.3 thou/uL (1.40-6.50); %Lymphocytes 5.5 % (21.0-51.0); %Monocytes 7.8 % (0.0-10.0); %Neutrophils 86.7 % (42.0-75.0); Hemoglobin 11.9 g/dL (12.0-16.0); Mean Corpuscular HGB CONC 32.7 g/dL (32.0-36.0); Mean Corpuscular Hemoglobin 30.2 pg (27.0-31.0); Mean Corpuscular Volume 92.4 fL (78.0-98.0); Mean Platelet Volume 9.7 fL (7.4-10.4); Platelet Count 184 thou/uL (130-400); Red Blood Cell (RBC) Count 3.93 mill/uL (4.20-5.40); White Blood Cell (WBC) Count 11.9 thou/uL (4.8-10.8)
[2020-10-24 05:34] LABS: ALT (SGPT) 18 U/L (8-55); AST (SGOT) 23 U/L (5-34); Albumin 2.9 g/dL (3.4-4.8); Alkaline Phosphatase 111 U/L (40-110); Anion Gap 14 mmol/L (10-20); BUN (Urea Nitrogen) 25 mg/dL (9.8-20.1); Bilirubin, Total 0.5 mg/dL (0.2-1.2); Calc. Creatinine Clearance 65 mL/min (70-130); Calcium 8.9 mg/dL (7.8-10.44); Carbon Dioxide 30 mmol/L (23-31); Chloride 93 mmol/L (98-107); Globulin 4.2 g/dL (2.4-3.5); Glucose 187 mg/dL (83-110); Magnesium 1.9 mg/dL (1.6-2.6); Phosphorus 3.6 mg/dL (2.3-4.7); Potassium 4.3 mmol/L (3.5-5.1); Protein, Total 7.1 g/dL (6.0-8.3); Sodium 133 mmol/L (136-145)
[2020-10-24] MEDS: Hydrochlorothiazide 25 MG TAB PO SCH ×2 (08:52→21:19)
[2020-10-24] MEDS: Doxycycline 100 MG CAP PO SCH ×2 (08:52→21:19)
[2020-10-24] MEDS: Losartan 25 MG TAB PO SCH ×2 (08:54→21:20)
[2020-10-24] MEDS: Polyethylene Glycol 3350 17 GM Packet PO SCH (08:55)
[2020-10-24] MEDS: Sotalol HCl 80 MG TAB PO SCH ×2 (08:55→21:19)
[2020-10-24] MEDS: Benzonatate 100 MG CAP PO PRN ×2 (08:56→16:41)
[2020-10-24] MEDS ORDERED: Magnesium 2 GM/50 ML 2 GM in Premix Bag 1 BAG IVPB SCH (12:30)
[2020-10-24] MEDS: Guaifenesin DM 100-10/5 ML UDCUP PO PRN (13:08)
[2020-10-24] MEDS: Acetaminophen 325 MG TAB PO PRN (13:33)
[2020-10-24] MEDS: REMDESIVIR (EUA) 100 MG in Sodium Chloride 0.9% 250 ML 230 ML IV SCH (16:40)
[2020-10-24] MEDS: Dexamethasone 4 mg/ml Vial SLOW IVP SCH (16:40)
--- NOTE | 2020-10-24 18:35 | PDOC.HOSPP ---
- Subjective Encounter Date: 10/24/20 Encounter Time: 15:00 Subjective: Patient seen and examined for respiratory failure/COVID-19 pneumonia. Denies any chest pain or shortness of breath. No fever or chills reported. Symptomatically feels much better. - Objective Vital Signs & Weight: Vital Signs (12 hours) Temp Pulse Resp BP Pulse Ox 10/24/20 12:00 98.1 F 62 20 128/62 93 L 10/24/20 09:20 94 L 10/24/20 08:50 97.8 F 60 14 134/60 95 Weight Weight 140 lb 3.424 oz I&O: 10/23/20 10/24/20 10/25/20 06:59 06:59 06:59 Intake Total 800 1152 Output Total 1900 653 Balance -1100 499 Result Diagrams: 10/24/20 04:21 10/24/20 04:21 Additional Labs: Abnormal Lab Results - Last 48 hrs 10/24/20 04:21: Sodium 133 L, Chloride 93 L, BUN 25 H, Alkaline Phosphatase 111 H, Albumin 2.9 L, Globulin 4.2 H, Albumin/Globulin Ratio 0.7 L 10/24/20 04:21: WBC 11.9 H, RBC 3.93 L, Hgb 11.9 L, Neutrophils % 86.7 H, Lymphocytes % 5.5 L, Neutrophils # 10.3 H, Lymphocytes # 0.7 L, Monocytes # 0.9 H 10/24/20 04:21: C-Reactive Protein 4.20 H 10/24/20 04:21: D-Dimer 2.51 H Microbiology - Entire Visit 10/19/20 18:42 Venous blood - Left Arm Blood Culture - Preliminary NO GROWTH AT 48 HOURS 10/19/20 19:05 Venous blood - Left Arm Blood Culture - Preliminary NO GROWTH AT 48 HOURS EKG Reviewed by me: Yes (Sinus rhythm on telemetry) Hospitalist ROS - Review of Systems Cardiovascular: denies: chest pain, palpitations, orthopnea, paroxysmal noc. dyspnea, edema, light headedness, other Gastrointestinal: denies: nausea, vomiting, abdominal pain, diarrhea, constipation, melena, hematochezia, other - Medication Medications: Active Medications Generic Name Dose Route Start Last Admin Trade Name Freq PRN Reason Stop Dose Admin Acetaminophen 650 mg 10/20/20 00:45 10/24/20 13:33 Acetaminophen 325 Mg Tab PO 650 mg Q4H PRN Administration Headache/Fever/Mild Pain (1-3) Benzonatate 100 mg 10/22/20 17:50 10/24/20 16:41 Benzonatate 100 Mg Cap PO 100 mg TIDPRN PRN Administration Cough Dexamethasone 6 mg 10/20/20 18:00 10/24/20 16:40 Dexamethasone 4 Mg/Ml Vial SLOW IVP 6 mg Q24H GREGORIO Administration Doxycycline Hyclate 100 mg 10/22/20 21:00 10/24/20 08:52 Doxycycline 100 Mg Cap PO 100 mg BID GREGORIO Administration Enoxaparin Sodium 40 mg 10/20/20 21:00 10/23/20 20:13 Enoxaparin Sodium 40 Mg/0.4 Ml Syringe SC Not Given 2100 GREGORIO Guaifenesin/Dextromethorphan 15 ml 10/20/20 00:45 10/24/20 13:08 Guaifenesin Dm 100-10/5 Ml Udcup PO 15 ml Q4H PRN Administration Cough Hydralazine HCl 10 mg 10/20/20 00:45 10/21/20 18:35 Hydralazine 20 Mg/Ml Vial SLOW IVP 10 mg Q6H PRN Administration SBP GREATER THAN 160 Hydrochlorothiazide 12.5 mg 10/20/20 09:00 10/24/20 08:52 Hydrochlorothiazide 25 Mg Tab PO 12.5 mg BID GREGORIO Administration Labetalol HCl 20 mg 10/20/20 00:45 10/21/20 16:19 Labetalol Hcl 100 Mg/20 Ml Vial SLOW IVP 20 mg Q4H PRN Administration SBP > 160 use first Losartan Potassium 50 mg 10/20/20 09:00 10/24/20 08:54 Losartan 25 Mg Tab PO 50 mg BID GREGORIO Administration Ondansetron HCl 4 mg 10/20/20 00:45 10/24/20 07:09 Ondansetron Pf 4 Mg/2 Ml Vial IVP 4 mg Q6H PRN Administration Nausea/Vomiting use 1st Pantoprazole Sodium 40 mg 10/23/20 09:00 10/24/20 08:55 Pantoprazole 40 Mg Tab PO 40 mg DAILY GREGORIO Administration Polyethylene Glycol 17 gm 10/20/20 09:00 10/24/20 08:55 Polyethylene Glycol 3350 17 Gm Packet PO 17 gm DAILY GREGORIO Administration Sodium Chloride 10 ml 10/21/20 09:00 10/24/20 08:55 Flush - Normal Saline 10 Ml Syringe IVF 10 ml Q12HR GREGORIO Administration Sotalol HCl 40 mg 10/23/20 21:00 10/24/20 08:55 Sotalol Hcl 80 Mg Tab PO 40 mg BID GREGORIO Administration - Exam General Appearance: awake alert Neck: supple, no JVD Heart: RRR, no gallops Respiratory: no wheezes, rhonchi Gastrointestinal: soft, no guarding, no rigidity Extremities: no cyanosis Neurological: no new deficit Musculoskeletal: generalized weakness Hosp A/P - Plan DVT proph w/SCDs 74-year-old female with hypertension, esophageal cancer arrhythmias in the past presented to the emergency room on 10/19 with shortness of breath and cough. Her work-up was consistent with bilateral pneumonia. She was started on O2 supplementation with dexamethasone as well as remdesivir. 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 Impression: Acute hypoxic respiratory failure due to extensive bilateral COVID-19 pneumonia Nonsustained ventricular tachycardia Hypertension Hypomagnesemia Chronic anemia suspected due to nutritional deficiency CKD stage II Hyponatremia Abnormal LFTs probably due to COVID-19 Poor IV access - s/p PICC line Plan: Wean O2 as tolerated. She is currently on 4 L O2 nasal cannula. Continue re mdesivirlast dose today. LFTs stable. Inflammatory markers slowly improving. I discussed the plan of care with the family yesterday. Replace magnesium. Continue sotalol. Continue Lovenox for DVT prophylaxis. Continue PPIs. Continue other medications as above
--- NOTE | 2020-10-24 19:19 | CON ---
DATE OF CONSULTATION: 10/24/2020 REASON FOR CONSULTATION: Nonsustained ventricular tachycardia in a patient with positive for COVID. HISTORY OF PRESENT ILLNESS: Ms. Downs is a very delightful 74-year-old woman. The patient has a history of palpitations and also stomach and esophagus cancer. She came in short of breath, diagnosed with COVID pneumonia and bilateral patchy infiltrates. While she was here, she has been found to have some nonsustained ventricular tachycardia and also some mild bradycardia. She said she notes she has some palpitations. Apparently, she is on sotalol for that. She is not aware of having any atrial fibrillation. No chest pain or pressure. REVIEW OF SYSTEMS: CONSTITUTIONAL: Positive for weakness and fatigue. VISION: No changes. HEARING: No changes. PULMONARY: Positive for cough and shortness of breath. CARDIAC: No chest pain. Positive for palpitations. GASTROINTESTINAL: No nausea, vomiting, or diarrhea. SKIN: No rashes. NEUROLOGIC: No unilateral weakness or numbness. PSYCHIATRIC: No unusual depression or anxiety. PHYSICAL EXAMINATION: GENERAL: This is a delightful elderly woman, who has a cough, short of breath with minimal activity. VITAL SIGNS: Blood pressure 128/62, pulse 60. LUNGS: Clear anteriorly and laterally. CARDIAC: Normal S1, normal S2. I do not hear murmur, rub, or gallop. ABDOMEN: Soft, nontender. No hepatosplenomegaly. EXTREMITIES: Warm and dry. No clubbing or cyanosis. She has no edema. PERTINENT LABORATORY DATA: She is positive for COVID. Chest x-ray, patchy infiltrates. On the monitor, she has had some accelerated idioventricular rhythm, some nonsustained ventricular tachycardia and some bradycardia. ASSESSMENT: 1. History of palpitations. 2. COVID pneumonia. 3. History of esophageal and gastric cancer. PLAN: 1. Sotalol was reduced to 40 mg twice a day. 2. Magnesium is on the low side. We will go ahead and give her some more magnesium intravenously tomorrow morning. No other recommendations. Job ID: [id number]
[2020-10-24] MEDS: Enoxaparin Sodium 40 MG/0.4 ML SYRINGE SC SCH (21:21)
[2020-10-25] MEDS: Hydrochlorothiazide 25 MG TAB PO SCH ×2 (00:18→08:17)
[2020-10-25 04:52] LABS: #Lymphocytes 0.6 thou/uL (1.20-3.40); #Monocytes 1.1 thou/uL (0.11-0.59); %Eosinophils 0.1 % (0.0-10.0); %Lymphocytes 4.8 % (21.0-51.0); %Monocytes 9.1 % (0.0-10.0); Hemoglobin 12.1 g/dL (12.0-16.0); Mean Corpuscular HGB CONC 31.7 g/dL (32.0-36.0); Mean Corpuscular Hemoglobin 29.8 pg (27.0-31.0); Mean Platelet Volume 9.5 fL (7.4-10.4); Platelet Count 193 thou/uL (130-400); RBC Distribution Width 11.9 % (11.5-14.5); Red Blood Cell (RBC) Count 4.08 mill/uL (4.20-5.40); White Blood Cell (WBC) Count 11.7 thou/uL (4.8-10.8)
[2020-10-25 05:21] LABS: ALT (SGPT) 15 U/L (8-55); AST (SGOT) 17 U/L (5-34); Albumin 2.9 g/dL (3.4-4.8); Alkaline Phosphatase 106 U/L (40-110); Anion Gap 13 mmol/L (10-20); BUN (Urea Nitrogen) 28 mg/dL (9.8-20.1); Bilirubin, Total 0.6 mg/dL (0.2-1.2); Calc. Creatinine Clearance 61 mL/min (70-130); Calcium 8.8 mg/dL (7.8-10.44); Carbon Dioxide 30 mmol/L (23-31); Chloride 92 mmol/L (98-107); Globulin 3.9 g/dL (2.4-3.5); Glucose 190 mg/dL (83-110); Potassium 4.5 mmol/L (3.5-5.1); Protein, Total 6.8 g/dL (6.0-8.3); Sodium 130 mmol/L (136-145)
[2020-10-25] MEDS: Ondansetron PF 4 MG/2 ML Vial IVP PRN (06:56)
[2020-10-25] MEDS ORDERED: Magnesium Sulfate 3 GM in Sodium Chloride 0.9% 100 ML IVPB SCH (08:00)
[2020-10-25] MEDS: Doxycycline 100 MG CAP PO SCH ×2 (08:17→19:49)
[2020-10-25] MEDS: Polyethylene Glycol 3350 17 GM Packet PO SCH ×2 (08:19→08:43)
[2020-10-25] MEDS: Losartan 25 MG TAB PO SCH ×2 (08:19→19:49)
[2020-10-25] MEDS: Sotalol HCl 80 MG TAB PO SCH (08:42)
[2020-10-25] MEDS: Guaifenesin DM 100-10/5 ML UDCUP PO PRN ×2 (12:35→19:49)
[2020-10-25] MEDS: Acetaminophen 325 MG TAB PO PRN (12:35)
--- NOTE | 2020-10-25 14:16 | PRG ---
DATE OF SERVICE: 10/25/2020 Ms. Downs had some slow heart rates, even on reduced dose of sotalol 40 mg twice a day. The indication for the sotalol according to the patient was palpitations. Therefore, we will stop the sotalol. At this time, we will sign off. Please re-consult if needed. Job ID: [id number]
[2020-10-25] MEDS: Benzonatate 100 MG CAP PO PRN (18:01)
[2020-10-25] MEDS: Dexamethasone 4 mg/ml Vial SLOW IVP SCH (18:02)
--- NOTE | 2020-10-25 21:48 | PDOC.HOSPP ---
- Subjective Encounter Date: 10/25/20 Encounter Time: 15:15 Subjective: Patient seen and examined for Respiratory failure due to COVID 19 pneumonia. No new complaints. Continues to feel generally weak and fatigue. Short of breath on mild exertion. Dry cough. - Objective Vital Signs & Weight: Vital Signs (12 hours) Temp Pulse Resp BP Pulse Ox Pulse Ox Pulse Ox 10/25/20 20:00 97.0 F L 84 18 135/61 96 10/25/20 18:27 93 L 10/25/20 18:25 78 L 10/25/20 18:15 90 L 10/25/20 16:42 90 L 86 L 10/25/20 16:06 97.9 F 62 20 109/66 93 L 10/25/20 12:05 96.9 F L 73 17 123/60 92 L Weight Weight 139 lb 12.369 oz I&O: 10/24/20 10/25/20 10/26/20 06:59 06:59 06:59 Intake Total 1152 1370 720 Output Total 653 1102 Balance 499 268 720 Result Diagrams: 10/25/20 04:22 10/25/20 04:22 Additional Labs: Abnormal Lab Results - Last 48 hrs 10/24/20 04:21: Sodium 133 L, Chloride 93 L, BUN 25 H, Alkaline Phosphatase 111 H, Albumin 2.9 L, Globulin 4.2 H, Albumin/Globulin Ratio 0.7 L 10/24/20 04:21: WBC 11.9 H, RBC 3.93 L, Hgb 11.9 L, Neutrophils % 86.7 H, Lymphocytes % 5.5 L, Neutrophils # 10.3 H, Lymphocytes # 0.7 L, Monocytes # 0.9 H 10/24/20 04:21: C-Reactive Protein 4.20 H 10/24/20 04:21: D-Dimer 2.51 H 10/25/20 04:22: Sodium 130 L, Chloride 92 L, BUN 28 H, Albumin 2.9 L, Globulin 3.9 H, Albumin/Globulin Ratio 0.7 L 10/25/20 04:22: WBC 11.7 H, RBC 4.08 L, MCHC 31.7 L, Neutrophils % 86.0 H, Lymphocytes % 4.8 L, Neutrophils # 10.0 H, Lymphocytes # 0.6 L, Monocytes # 1.1 H Microbiology - Entire Visit 10/19/20 18:42 Venous blood - Left Arm Blood Culture - Final NO GROWTH IN 5 DAYS 10/19/20 19:05 Venous blood - Left Arm Blood Culture - Final NO GROWTH IN 5 DAYS EKG Reviewed by me: Yes (Sinus rhythm on telemetry) Hospitalist ROS - Review of Systems Cardiovascular: denies: chest pain, palpitations, orthopnea, paroxysmal noc. dyspnea, edema, light headedness, other Gastrointestinal: denies: nausea, vomiting, abdominal pain, diarrhea, constipation, melena, hematochezia, other - Medication Medications: Active Medications Generic Name Dose Route Start Last Admin Trade Name Freq PRN Reason Stop Dose Admin Acetaminophen 650 mg 10/20/20 00:45 10/25/20 12:35 Acetaminophen 325 Mg Tab PO 650 mg Q4H PRN Administration Headache/Fever/Mild Pain (1-3) Benzonatate 100 mg 10/22/20 17:50 10/25/20 18:01 Benzonatate 100 Mg Cap PO 100 mg TIDPRN PRN Administration Cough Dexamethasone 6 mg 10/20/20 18:00 10/25/20 18:02 Dexamethasone 4 Mg/Ml Vial SLOW IVP 6 mg Q24H GREGORIO Administration Doxycycline Hyclate 100 mg 10/22/20 21:00 10/25/20 19:49 Doxycycline 100 Mg Cap PO 100 mg BID GREGORIO Administration Enoxaparin Sodium 40 mg 10/20/20 21:00 10/24/20 21:21 Enoxaparin Sodium 40 Mg/0.4 Ml Syringe SC Not Given 2100 GREGORIO Guaifenesin/Dextromethorphan 15 ml 10/20/20 00:45 10/25/20 19:49 Guaifenesin Dm 100-10/5 Ml Udcup PO 15 ml Q4H PRN Administration Cough Hydralazine HCl 10 mg 10/20/20 00:45 10/21/20 18:35 Hydralazine 20 Mg/Ml Vial SLOW IVP 10 mg Q6H PRN Administration SBP GREATER THAN 160 Labetalol HCl 20 mg 10/20/20 00:45 10/21/20 16:19 Labetalol Hcl 100 Mg/20 Ml Vial SLOW IVP 20 mg Q4H PRN Administration SBP > 160 use first Losartan Potassium 50 mg 10/20/20 09:00 01/18/21 19:49 Losartan 25 Mg Tab PO 50 mg BID GREGORIO Administration Ondansetron HCl 4 mg 10/20/20 00:45 10/25/20 06:56 Ondansetron Pf 4 Mg/2 Ml Vial IVP 4 mg Q6H PRN Administration Nausea/Vomiting use 1st Pantoprazole Sodium 40 mg 10/23/20 09:00 10/25/20 08:18 Pantoprazole 40 Mg Tab PO 40 mg DAILY GREGORIO Administration Polyethylene Glycol 17 gm 10/20/20 09:00 10/25/20 08:43 Polyethylene Glycol 3350 17 Gm Packet PO Not Given DAILY GREGORIO Sodium Chloride 10 ml 10/21/20 09:00 10/25/20 19:50 Flush - Normal Saline 10 Ml Syringe IVF 10 ml Q12HR GREGORIO Administration - Exam General Appearance: awake alert Neck: supple, no JVD Heart: RRR, no gallops Respiratory: rales, rhonchi Gastrointestinal: soft, no guarding, no rigidity Extremities: no cyanosis Hosp A/P - Plan DVT proph w/lovenox, DVT proph w/SCDs 74-year-old female with hypertension, esophageal cancer arrhythmias in the past presented to the emergency room on 10/19 with shortness of breath and cough. Her work-up was consistent with bilateral pneumonia. She was started on O2 supplementation with dexamethasone as well as remdesivir. 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 Impression: Acute hypoxic respiratory failure due to extensive bilateral COVID-19 pneumonia Nonsustained ventricular tachycardia Hypertension Hypomagnesemia Chronic anemia suspected due to nutritional deficiency CKD stage II Hyponatremia Abnormal LFTs probably due to COVID-19 Poor IV access - s/p PICC line Plan: Patient currently on 3 L O2 nasal cannula. Will continue to wean as tolerated. Inflammatory markers improving. Blood cultures negative. Sotalol discontinued due to intermittent bradycardia per cardiology. Magnesium replaced today. Continue dexamethasone along with doxycycline. Hydrochlorothiazide reduced to once a day. Continue losartan. Continue other medications as above. Check labs in a.m. 10/24 Wean O2 as tolerated. She is currently on 4 L O2 nasal cannula. Continue remdesivirlast dose today. LFTs stable. Inflammatory markers slowly improving. I discussed the plan of care with the family yesterday. Replace magnesium. Diann nue sotalol. Continue Lovenox for DVT prophylaxis. Continue PPIs. Continue other medications as above
[2020-10-25] MEDS: Enoxaparin Sodium 40 MG/0.4 ML SYRINGE SC SCH (23:30)
[2020-10-26] MEDS: Ondansetron PF 4 MG/2 ML Vial IVP PRN (02:17)
[2020-10-26 05:28] LABS: #Lymphocytes 0.8 thou/uL (1.20-3.40); #Monocytes 1.3 thou/uL (0.11-0.59); #Neutrophils 12.6 thou/uL (1.40-6.50); %Basophils 0.3 % (0.0-1.0); %Eosinophils 0.1 % (0.0-10.0); %Lymphocytes 5.6 % (21.0-51.0); %Monocytes 8.7 % (0.0-10.0); %Neutrophils 85.4 % (42.0-75.0); Hemoglobin 12.5 g/dL (12.0-16.0); Mean Corpuscular HGB CONC 31.6 g/dL (32.0-36.0); Mean Corpuscular Hemoglobin 29.2 pg (27.0-31.0); Mean Corpuscular Volume 92.2 fL (78.0-98.0); Mean Platelet Volume 9.6 fL (7.4-10.4); Platelet Count 229 thou/uL (130-400); RBC Distribution Width 12.2 % (11.5-14.5); Red Blood Cell (RBC) Count 4.29 mill/uL (4.20-5.40); White Blood Cell (WBC) Count 14.7 thou/uL (4.8-10.8)
[2020-10-26 05:49] LABS: ALT (SGPT) 14 U/L (8-55); AST (SGOT) 18 U/L (5-34); Albumin 2.9 g/dL (3.4-4.8); Alkaline Phosphatase 107 U/L (40-110); Anion Gap 15 mmol/L (10-20); BUN (Urea Nitrogen) 31 mg/dL (9.8-20.1); Bilirubin, Total 0.8 mg/dL (0.2-1.2); Calc. Creatinine Clearance 59 mL/min (70-130); Calcium 9.1 mg/dL (7.8-10.44); Carbon Dioxide 27 mmol/L (23-31); Globulin 4.2 g/dL (2.4-3.5); Glucose 212 mg/dL (83-110); Potassium 4.8 mmol/L (3.5-5.1); Protein, Total 7.1 g/dL (6.0-8.3)
[2020-10-26 06:04] LABS: Chloride 92 mmol/L (98-107); Sodium 129 mmol/L (136-145)
[2020-10-26] MEDS: Doxycycline 100 MG CAP PO SCH ×2 (07:56→20:14)
[2020-10-26] MEDS: Losartan 25 MG TAB PO SCH (07:57)
[2020-10-26] MEDS ORDERED: Magnesium Sulfate 3 GM in Sodium Chloride 0.9% 100 ML IVPB SCH (08:00)
[2020-10-26] MEDS: Polyethylene Glycol 3350 17 GM Packet PO SCH (08:25)
[2020-10-26] MEDS ORDERED: Hydrochlorothiazide 25 MG TAB PO SCH (09:00)
[2020-10-26 12:20] LABS: Troponin I 0.031 ng/mL (< 0.028)
[2020-10-26 15:04] LABS: Sodium 131 mmol/L (136-145)
[2020-10-26 15:06] LABS: Troponin I 0.023 ng/mL (< 0.028)
[2020-10-26] MEDS: Benzonatate 100 MG CAP PO PRN (15:23)
[2020-10-26] MEDS: Guaifenesin DM 100-10/5 ML UDCUP PO PRN ×2 (15:23→23:09)
--- NOTE | 2020-10-26 18:20 | PDOC.HOSPP ---
- Subjective Encounter Date: 10/26/20 Encounter Time: 12:30 Subjective: Patient seen and examined for respiratory failure. Symptomatically feeling better. Denies any new complaints. On 3 L oxygen nasal cannula. - Objective Vital Signs & Weight: Vital Signs (12 hours) Temp Pulse Pulse Pulse Resp BP BP 10/26/20 17:20 97.9 F 77 18 112/53 L 10/26/20 12:00 98.1 F 61 18 121/54 L 10/26/20 09:33 84 74 127/59 L 10/26/20 08:00 98.1 F 67 18 117/58 L Pulse Ox Pulse Ox Pulse Ox 10/26/20 17:20 92 L 10/26/20 12:00 97 10/26/20 09:33 93 L 96 10/26/20 08:00 93 L Weight Weight 139 lb 15.896 oz I&O: 10/25/20 10/26/20 10/27/20 06:59 06:59 06:59 Intake Total 1370 720 Output Total 1102 325 Balance 268 395 Result Diagrams: 10/26/20 04:49 10/26/20 14:12 Additional Labs: Abnormal Lab Results - Last 48 hrs 10/25/20 04:22: Sodium 130 L, Chloride 92 L, BUN 28 H, Albumin 2.9 L, Globulin 3.9 H, Albumin/Globulin Ratio 0.7 L 10/25/20 04:22: WBC 11.7 H, RBC 4.08 L, MCHC 31.7 L, Neutrophils % 86.0 H, Lymphocytes % 4.8 L, Neutrophils # 10.0 H, Lymphocytes # 0.6 L, Monocytes # 1.1 H 10/26/20 04:49: Sodium 129 L, Chloride 92 L, BUN 31 H, Albumin 2.9 L, Globulin 4.2 H, Albumin/Globulin Ratio 0.7 L 10/26/20 04:49: WBC 14.7 H, MCHC 31.6 L, Neutrophils % 85.4 H, Lymphocytes % 5.6 L, Neutrophils # 12.6 H, Lymphocytes # 0.8 L, Monocytes # 1.3 H 10/26/20 11:18: Troponin I 0.031 H 10/26/20 14:12: Sodium 131 L Microbiology - Entire Visit 10/19/20 18:42 Venous blood - Left Arm Blood Culture - Final NO GROWTH IN 5 DAYS 10/19/20 19:05 Venous blood - Left Arm Blood Culture - Final NO GROWTH IN 5 DAYS EKG Reviewed by me: Yes (Sinus rhythm on telemetry.) Hospitalist ROS - Review of Systems Cardiovascular: denies: chest pain, palpitations, orthopnea, paroxysmal noc. dyspnea, edema, light headedness, other Gastrointestinal: denies: nausea, vomiting, abdominal pain, diarrhea, constipation, melena, hematochezia, other - Medication Medications: Active Medications Generic Name Dose Route Start Last Admin Trade Name Freq PRN Reason Stop Dose Admin Acetaminophen 650 mg 10/20/20 00:45 10/25/20 12:35 Acetaminophen 325 Mg Tab PO 650 mg Q4H PRN Administration Headache/Fever/Mild Pain (1-3) Benzonatate 100 mg 10/22/20 17:50 10/26/20 15:23 Benzonatate 100 Mg Cap PO 100 mg TIDPRN PRN Administration Cough Dexamethasone 6 mg 10/20/20 18:00 10/25/20 18:02 Dexamethasone 4 Mg/Ml Vial SLOW IVP 6 mg Q24H GREGORIO Administration Doxycycline Hyclate 100 mg 10/22/20 21:00 10/26/20 07:56 Doxycycline 100 Mg Cap PO 100 mg BID GREGORIO Administration Enoxaparin Sodium 40 mg 10/20/20 21:00 10/25/20 23:30 Enoxaparin Sodium 40 Mg/0.4 Ml Syringe SC Not Given 2100 GREGORIO Guaifenesin/Dextromethorphan 15 ml 10/20/20 00:45 10/26/20 15:23 Guaifenesin Dm 100-10/5 Ml Udcup PO 15 ml Q4H PRN Administration Cough Hydralazine HCl 10 mg 10/20/20 00:45 10/21/20 18:35 Hydralazine 20 Mg/Ml Vial SLOW IVP 10 mg Q6H PRN Administration SBP GREATER THAN 160 Labetalol HCl 20 mg 10/20/20 00:45 10/21/20 16:19 Labetalol Hcl 100 Mg/20 Ml Vial SLOW IVP 20 mg Q4H PRN Administration SBP > 160 use first Ondansetron HCl 4 mg 10/20/20 00:45 10/26/20 02:17 Ondansetron Pf 4 Mg/2 Ml Vial IVP 4 mg Q6H PRN Administration Nausea/Vomiting use 1st Pantoprazole Sodium 40 mg 10/23/20 09:00 10/26/20 07:57 Pantoprazole 40 Mg Tab PO 40 mg DAILY GREGORIO Administration Polyethylene Glycol 17 gm 10/20/20 09:00 10/26/20 08:25 Polyethylene Glycol 3350 17 Gm Packet PO Not Given DAILY GREGORIO Sodium Chloride 10 ml 10/21/20 09:00 10/26/20 07:58 Flush - Normal Saline 10 Ml Syringe IVF 10 ml Q12HR GREGORIO Administration - Exam General Appearance: awake alert Heart: RRR, no gallops Respiratory: no wheezes, rales, rhonchi Gastrointestinal: soft, non-tender, non-distended, normal bowel sounds Extremities: no cyanosis Neurological: no new deficit Hosp A/P - Plan DVT proph w/SCDs 74-year-old female with hypertension, esophageal cancer arrhythmias in the past presented to the emergency room on 10/19 with shortness of breath and cough. Her work-up was consistent with bilateral pneumonia. She was started on O2 supplementation with dexamethasone as well as remdesivir. 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 Impression: Acute hypoxic respiratory failure due to extensive bilateral COVID-19 pneumonia Nonsustained ventricular tachycardia Hypertension Hypomagnesemia Chronic anemia suspected due to nutritional deficiency CKD stage II Hyponatremia Abnormal LFTs probably due to COVID-19 Poor IV access - s/p PICC line Plan: Patient on 3 L O2 nasal cannula. WBC count 14.7 from 11.7 without significant new left shift. This could be due to steroids. Patient also had sodium of 129 today for which diuretics/ARB were held. Repeat sodium was 131. Received magnesium. Continue doxycycline. Sotalol discontinued per cardiology. Will arrange for home oxygen. 10/25 Patient currently on 3 L O2 nasal cannula. Will continue to wean as tolerated. Inflammatory markers improving. Blood cultures negative. Sotalol discontinued due to intermittent bradycardia per cardiology. Magnesium replaced today. Continue dexamethasone along with doxycycline. Hydrochlorothiazide reduced to once a day. Continue losartan. Continue other medications as above. Check labs in a.m. 10/24 Wean O2 as tolerated. She is currently on 4 L O2 nasal cannula. Continue remdesivirlast dose today. LFTs stable. Inflammatory markers slowly improving. I discussed the plan of care with the family yesterday. Replace magnesium. Continue sotalol. Continue Lovenox for DVT prophylaxis. Continue PPIs. Continue other medications as above
[2020-10-26] MEDS: Dexamethasone 4 mg/ml Vial SLOW IVP SCH (19:20)
[2020-10-26] MEDS: Enoxaparin Sodium 40 MG/0.4 ML SYRINGE SC SCH (20:27)
[2020-10-27 05:21] VITALS: BMI 19.3
[2020-10-27] MEDS: Doxycycline 100 MG CAP PO SCH ×2 (08:29→21:50)
[2020-10-27] MEDS: Ondansetron PF 4 MG/2 ML Vial IVP PRN (08:30)
[2020-10-27] MEDS: Polyethylene Glycol 3350 17 GM Packet PO SCH (08:30)
[2020-10-27 09:45] LABS: Phosphorus 3.9 mg/dL (2.3-4.7)
[2020-10-27 09:46] LABS: CRP (Inflammatory) 5.51 mg/dL (= or < 0.5); Magnesium 2.1 mg/dL (1.6-2.6)
[2020-10-27] MEDS: Guaifenesin DM 100-10/5 ML UDCUP PO PRN (15:20)
[2020-10-27] MEDS: Benzonatate 100 MG CAP PO PRN (15:20)
--- NOTE | 2020-10-27 15:27 | RAD ---
EXAM: CHEST ONE VIEW HISTORY: Shortness of breath and hypoxia. COMPARISON: 10/19/2020 FINDINGS: Again noted is prominent elevation of the left hemidiaphragm with parenchymal changes again seen at t he left lung base which may be related to volume loss, aspiration, or pneumonia.. Additional linear and ill-defined patchy parenchymal opacities are seen throughout the lungs bilaterally overall simila r to prior exam. Gas densities are seen overlying the mediastinum, and CT a chest on 10/19/2020 suggested postoperative changes related to a gastric pull-through procedure likely accounting for thi s finding. Left sided PICC line is now noted in place with tip overlying the junction of the innominate vein and SVC. IMPRESSION: 1. Scattered interstitial and mild patchy parenchymal densities worrisome for infectious process and possibly related to Covid pneumonia in the correct clinical scenario. 2. Persistent elevation left hemidiaphragm with patchy parenchymal changes left lung base which may r epresent atelectasis or left lower lobe pneumonia versus aspiration pneumonitis.
[2020-10-27] MEDS: Dexamethasone 4 mg/ml Vial SLOW IVP SCH (18:03)
[2020-10-27] MEDS: MEROPENEM 1 GM/50 ML 1 GM in Premix Bag 1 BAG IVPB SCH (18:03)
[2020-10-27] MEDS: Acetaminophen 325 MG TAB PO PRN (18:37)
--- NOTE | 2020-10-27 19:34 | PDOC.HOSPP ---
- Subjective Encounter Date: 10/27/20 Encounter Time: 13:00 Subjective: Patient seen and examined for respiratory failure due to COVID-19. Feels generally weak and fatigued. Short of breath on minimal exertion. Remains on 3 L O2 nasal cannula. - Objective Vital Signs & Weight: Vital Signs (12 hours) Temp Pulse Resp BP Pulse Ox 10/27/20 12:40 97.7 F 82 20 126/59 L 95 10/27/20 08:30 97.9 F 86 17 113/58 L 93 L Weight Admit Weight 145 lb Weight 138 lb 14.259 oz I&O: 10/26/20 10/27/20 10/28/20 06:59 06:59 06:59 Intake Total 720 900 Output Total 325 250 Balance 395 650 Result Diagrams: 10/26/20 04:49 10/26/20 14:12 Additional Labs: Abnormal Lab Results - Last 48 hrs 10/26/20 04:49: Sodium 129 L, Chloride 92 L, BUN 31 H, Albumin 2.9 L, Globulin 4.2 H, Albumin/Globulin Ratio 0.7 L 10/26/20 04:49: WBC 14.7 H, MCHC 31.6 L, Neutrophils % 85.4 H, Lymphocytes % 5.6 L, Neutrophils # 12.6 H, Lymphocytes # 0.8 L, Monocytes # 1.3 H 10/26/20 11:18: Troponin I 0.031 H 10/26/20 14:12: Sodium 131 L 10/27/20 09:14: C-Reactive Protein 5.51 H 10/27/20 09:14: D-Dimer 4.97 H Microbiology - Entire Visit 10/19/20 18:42 Venous blood - Left Arm Blood Culture - Final NO GROWTH IN 5 DAYS 10/19/20 19:05 Venous blood - Left Arm Blood Culture - Final NO GROWTH IN 5 DAYS Radiology Reviewed by me: Yes (Chest x-raypneumonia versus aspiration) EKG Reviewed by me: Yes (Sinus rhythm on telemetry) Hospitalist ROS - Review of Systems Cardiovascular: denies: chest pain, palpitations, orthopnea, paroxysmal noc. dyspnea, edema, light headedness, other Gastrointestinal: denies: nausea, vomiting, abdominal pain, diarrhea, constipation, melena, hematochezia, other - Medication Medications: Active Medications Generic Name Dose Route Start Last Admin Trade Name Freq PRN Reason Stop Dose Admin Acetaminophen 650 mg 10/20/20 00:45 10/27/20 18:37 Acetaminophen 325 Mg Tab PO 650 mg Q4H PRN Administration Headache/Fever/Mild Pain (1-3) Benzonatate 100 mg 10/22/20 17:50 10/27/20 15:20 Benzonatate 100 Mg Cap PO 100 mg TIDPRN PRN Administration Cough Dexamethasone 6 mg 10/20/20 18:00 10/27/20 18:03 Dexamethasone 4 Mg/Ml Vial SLOW IVP 6 mg Q24H GREGORIO Administration Doxycycline Hyclate 100 mg 10/22/20 21:00 10/27/20 08:29 Doxycycline 100 Mg Cap PO 100 mg BID GREGORIO Administration Guaifenesin/Dextromethorphan 15 ml 10/21/20 23:19 10/27/20 15:20 Guaifenesin Dm 100-10/5 Ml Udcup PO 15 ml Q4H PRN Administration Cough Hydralazine HCl 10 mg 10/20/20 00:45 10/21/20 18:35 Hydralazine 20 Mg/Ml Vial SLOW IVP 10 mg Q6H PRN Administration SBP GREATER THAN 160 Meropenem 1 gm/ Device 50 mls @ 100 mls/hr 10/27/20 17:00 10/27/20 18:03 IVPB 50 mls 0100,0900,1700 GREGORIO Administration Ondansetron HCl 4 mg 10/20/20 00:45 10/27/20 08:30 Ondansetron Pf 4 Mg/2 Ml Vial IVP 4 mg Q6H PRN Administration Nausea/Vomiting use 1st Pantoprazole Sodium 40 mg 10/23/20 09:00 10/27/20 08:29 Pantoprazole 40 Mg Tab PO 40 mg DAILY GREGORIO Administration Polyethylene Glycol 17 gm 10/20/20 09:00 10/27/20 08:30 Polyethylene Glycol 3350 17 Gm Packet PO Not Given DAILY GREGORIO Sodium Chloride 10 ml 10/21/20 09:00 10/27/20 08:29 Flush - Normal Saline 10 Ml Syringe IVF 10 ml Q12HR GREGORIO Administration - Exam General Appearance: ill appearing Neck: supple, no JVD Heart: RRR, no gallops Respiratory: no wheezes, rales, rhonchi, tachypneic Gastrointestinal: soft, non-tender, no guarding, no rigidity Extremities: no cyanosis Neurological: no new deficit Musculoskeletal: generalized weakness Psychiatric: A&O x 3 Hosp A/P - Plan DVT proph w/SCDs 74-year-old female with hypertension, esophageal cancer arrhythmias in the past presented to the emergency room on 10/19 with shortness of breath and cough. Her work-up was consistent with bilateral pneumonia. She was started on O2 supplementation with dexamethasone as well as remdesivir. She also had NSVT on the air sampling and monitoring. Impression: Acute hypoxic respiratory failure due to extensive bilateral COVID-19 pneumonia Nonsustained ventricular tachycardia Hypertension Hypomagnesemia Chronic anemia suspected due to nutritional deficiency CKD stage II Hyponatremia Abnormal LFTs probably due to COVID-19 Poor IV access - s/p PICC line Plan: Patient remains on 3 L oxygen nasal cannula. Inflammatory markers worsening. D-dimer now 4.97 with CRP of 5.51 and ferritin of 231. All the 3 markers have worsened today. Chest x-ray today showed bilateral pneumonia. Continue supportive care. Not stable for discharge. Add meropenem due to possible superinfection versus aspiration pneumonia. Case discussed with the family over the phone. 10/26 Patient on 3 L O2 nasal cannula. WBC count 14.7 from 11.7 without significant new left shift. This could be due to steroids. Patient also had sodium of 129 today for which diuretics/ARB were held. Repeat sodium was 131. Received magnesium. Continue doxycycline. Sotalol discontinued per cardiology. Will arrange for home oxygen. 10/25 Patient currently on 3 L O2 nasal cannula. Will continue to wean as tolerated. Inflammatory markers improving. Blood cultures negative. Sotalol discontinued due to intermittent bradycardia per cardiology. Magnesium replaced today. Continue dexamethasone along with doxycycline. Hydrochlorothiazide reduced to once a day. Continue losartan. Continue other medications as above. Check labs in a.m. 10/24 Wean O2 as tolerated. She is currently on 4 L O2 nasal cannula. Continue remdesivirlast dose today. LFTs stable. Inflammatory markers slowly improving. I discussed the plan of care with the family yesterday. Replace magnesium. Continue sotalol. Continue Lovenox for DVT prophylaxis. Continue PPIs. Continue other medications as above
[2020-10-27] MEDS: guaiFENesin ER 600 MG TAB PO SCH (21:50)
[2020-10-27] MEDS: Enoxaparin Sodium 40 MG/0.4 ML SYRINGE SC SCH (21:51)
[2020-10-28] MEDS: MEROPENEM 1 GM/50 ML 1 GM in Premix Bag 1 BAG IVPB SCH ×3 (01:34→17:50)
[2020-10-28 04:48] LABS: #Lymphocytes 0.8 thou/uL (1.20-3.40); #Monocytes 0.9 thou/uL (0.11-0.59); #Neutrophils 10.2 thou/uL (1.40-6.50); %Basophils 0.1 % (0.0-1.0); %Eosinophils 0.2 % (0.0-10.0); %Lymphocytes 6.8 % (21.0-51.0); %Monocytes 7.3 % (0.0-10.0); %Neutrophils 85.6 % (42.0-75.0); Hemoglobin 12.1 g/dL (12.0-16.0); Mean Corpuscular HGB CONC 31.7 g/dL (32.0-36.0); Mean Corpuscular Hemoglobin 29.6 pg (27.0-31.0); Mean Corpuscular Volume 93.4 fL (78.0-98.0); Platelet Count 222 thou/uL (130-400); RBC Distribution Width 12.1 % (11.5-14.5); Red Blood Cell (RBC) Count 4.09 mill/uL (4.20-5.40); White Blood Cell (WBC) Count 11.9 thou/uL (4.8-10.8)
[2020-10-28 05:06] LABS: Phosphorus 3.7 mg/dL (2.3-4.7)
[2020-10-28 05:07] LABS: ALT (SGPT) 11 U/L (8-55); AST (SGOT) 17 U/L (5-34); Albumin 2.8 g/dL (3.4-4.8); Alkaline Phosphatase 97 U/L (40-110); Anion Gap 14 mmol/L (10-20); BUN (Urea Nitrogen) 29 mg/dL (9.8-20.1); Bilirubin, Total 0.9 mg/dL (0.2-1.2); Calc. Creatinine Clearance 64 mL/min (70-130); Calcium 9.1 mg/dL (7.8-10.44); Carbon Dioxide 28 mmol/L (23-31); Chloride 94 mmol/L (98-107); Globulin 4.2 g/dL (2.4-3.5); Glucose 227 mg/dL (83-110); Potassium 5.1 mmol/L (3.5-5.1); Sodium 131 mmol/L (136-145)
[2020-10-28] MEDS ORDERED: Magnesium 2 GM/50 ML 2 GM in Premix Bag 1 BAG IVPB SCH (05:30)
[2020-10-28] MEDS: Doxycycline 100 MG CAP PO SCH ×2 (08:54→20:44)
[2020-10-28] MEDS: Enoxaparin Sodium 40 MG/0.4 ML SYRINGE SC SCH ×2 (08:54→20:43)
[2020-10-28] MEDS: guaiFENesin ER 600 MG TAB PO SCH ×2 (08:54→20:44)
[2020-10-28] MEDS: Guaifenesin DM 100-10/5 ML UDCUP PO PRN ×2 (08:54→16:38)
[2020-10-28] MEDS: Polyethylene Glycol 3350 17 GM Packet PO SCH (08:54)
--- NOTE | 2020-10-28 09:12 | EKG ---
Test Reason : Blood Pressure : / mmHG Vent. Rate : 069 BPM Atrial Rate : 069 BPM P-R Int : 116 ms QRS Dur : 092 ms QT Int : 436 ms P-R-T Axes : 055 -05 054 degrees QTc Int : 467 ms Sinus rhythm with occasional Premature ventricular complexes Non-specific intra-ventricular conduction delay Voltage criteria for left ventricular hypertrophy Nonspecific ST and T wave abnormality Abnormal ECG Confirmed by ANISHA ACKERMAN ([id number]) on 10/28/2020 9:11:58 AM Referred By: SABRIAN Confirmed By:ANISHA ACKERMAN
[2020-10-28] MEDS: Dexamethasone 4 mg/ml Vial SLOW IVP SCH (17:48)
--- NOTE | 2020-10-28 21:53 | PDOC.HOSPP ---
- Subjective Encounter Date: 10/28/20 Encounter Time: 15:00 Subjective: Patient seen and examined for COVID 19 pneumonia. Feeling slightly better. Mild dry cough. No fever or chills reported. - Objective Vital Signs & Weight: Vital Signs (12 hours) Temp Pulse Resp BP BP Pulse Ox 10/28/20 20:00 95 10/28/20 19:36 97.7 F 78 14 126/58 L 95 10/28/20 16:00 97.5 F L 65 16 124/59 L 95 10/28/20 15:47 97.5 F L 65 16 124/59 L 95 10/28/20 12:38 97.1 F L 78 16 122/56 L 95 Weight Admit Weight 145 lb Weight 144 lb 2 oz I&O: 10/27/20 10/28/20 10/29/20 06:59 06:59 06:59 Intake Total 900 1380 Output Total 250 800 900 Balance 650 580 -900 Result Diagrams: 10/28/20 04:34 10/28/20 04:34 Additional Labs: Abnormal Lab Results - Last 48 hrs 10/27/20 09:14: C-Reactive Protein 5.51 H 10/27/20 09:14: D-Dimer 4.97 H 10/28/20 04:34: Sodium 131 L, Chloride 94 L, BUN 29 H, Albumin 2.8 L, Globulin 4.2 H, Albumin/Globulin Ratio 0.7 L 10/28/20 04:34: WBC 11.9 H, RBC 4.09 L, MCHC 31.7 L, Neutrophils % 85.6 H, Lymphocytes % 6.8 L, Neutrophils # 10.2 H, Lymphocytes # 0.8 L, Monocytes # 0.9 H Microbiology - Entire Visit 10/19/20 18:42 Venous blood - Left Arm Blood Culture - Final NO GROWTH IN 5 DAYS 10/19/20 19:05 Venous blood - Left Arm Blood Culture - Final NO GROWTH IN 5 DAYS Radiology Reviewed by me: Yes (Chest x-raypneumonia) Hospitalist ROS - Review of Systems Cardiovascular: denies: chest pain, palpitations, orthopnea, paroxysmal noc. dyspnea, edema, light headedness, other Gastrointestinal: denies: nausea, vomiting, abdominal pain, diarrhea, constipation, melena, hematochezia, other - Medication Medications: Active Medications Generic Name Dose Route Start Last Admin Trade Name Freq PRN Reason Stop Dose Admin Acetaminophen 650 mg 10/20/20 00:45 10/27/20 18:37 Acetaminophen 325 Mg Tab PO 650 mg Q4H PRN Administration Headache/Fever/Mild Pain (1-3) Benzonatate 100 mg 10/22/20 17:50 10/27/20 15:20 Benzonatate 100 Mg Cap PO 100 mg TIDPRN PRN Administration Cough Dexamethasone 6 mg 10/20/20 18:00 10/28/20 17:48 Dexamethasone 4 Mg/Ml Vial SLOW IVP 6 mg Q24H GREGORIO Administration Doxycycline Hyclate 100 mg 10/22/20 21:00 10/28/20 20:44 Doxycycline 100 Mg Cap PO 100 mg BID GREGORIO Administration Enoxaparin Sodium 40 mg 10/27/20 21:00 10/28/20 20:43 Enoxaparin Sodium 40 Mg/0.4 Ml Syringe SC 40 mg 0900,2100 GREGORIO Administration Guaifenesin 600 mg 10/27/20 21:00 10/28/20 20:44 Guaifenesin Er 600 Mg Tab PO 600 mg Q12HR GREGORIO Administration Guaifenesin/Dextromethorphan 15 ml 10/21/20 23:19 10/28/20 16:38 Guaifenesin Dm 100-10/5 Ml Udcup PO 15 ml Q4H PRN Administration Cough Hydralazine HCl 10 mg 10/20/20 00:45 10/21/20 18:35 Hydralazine 20 Mg/Ml Vial SLOW IVP 10 mg Q6H PRN Administration SBP GREATER THAN 160 Meropenem 1 gm/ Device 50 mls @ 100 mls/hr 10/27/20 17:00 10/28/20 17:50 IVPB 50 mls 0100,0900,1700 GREGORIO Administration Ondansetron HCl 4 mg 10/20/20 00:45 10/27/20 08:30 Ondansetron Pf 4 Mg/2 Ml Vial IVP 4 mg Q6H PRN Administration Nausea/Vomiting use 1st Pantoprazole Sodium 40 mg 10/23/20 09:00 10/28/20 08:54 Pantoprazole 40 Mg Tab PO 40 mg DAILY GREGORIO Administration Polyethylene Glycol 17 gm 10/20/20 09:00 10/28/20 08:54 Polyethylene Glycol 3350 17 Gm Packet PO 17 gm DAILY GREGORIO Administration Sodium Chloride 10 ml 10/21/20 09:00 10/28/20 20:44 Flush - Normal Saline 10 Ml Syringe IVF 10 ml Q12HR GREGORIO Administration - Exam General Appearance: awake alert Neck: supple, no JVD Heart: RRR, no gallops Respiratory: no wheezes, normal chest expansion, rales, rhonchi Gastrointestinal: soft, no guarding, no rigidity Extremities: no cyanosis Neurological: no new deficit Psychiatric: A&O x 3 Hosp A/P - Plan DVT proph w/SCDs 74-year-old female with hypertension, esophageal cancer arrhythmias in the past presented to the emergency room on 10/19 with shortness of breath and cough. Her work-up was consistent with bilateral pneumonia. She was started on O2 supplementation with dexamethasone as well as remdesivir. 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 Impression: Acute hypoxic respiratory failure due to extensive bilateral COVID-19 pneumonia Nonsustained ventricular tachycardia Hypertension Hypomagnesemia Chronic anemia suspected due to nutritional deficiency CKD stage II Hyponatremia Abnormal LFTs probably due to COVID-19 Poor IV access - s/p PICC line Plan: Wean O2 as tolerated. Will recheck inflammatory markers in a.m. Replace magnesium. Continue empiric antibiotics. Continue Lovenox for DVT prophylaxis. Continue physical therapy. DC in a.m. if stable 10/27 Patient remains on 3 L oxygen nasal cannula. Inflammatory markers worsening. D-dimer now 4.97 with CRP of 5.51 and ferritin of 231. All the 3 markers have worsened today. Chest x-ray today showed bilateral pneumonia. Continue supportive care. Not stable for discharge. Add meropenem due to possible superinfection versus aspiration pneumonia. Case discussed with the family over the phone. 10/26 Patient on 3 L O2 nasal cannula. WBC count 14.7 from 11.7 without significant new left shift. This could be due to steroids. Patient also had sodium of 129 today for which diuretics/ARB were held. Repeat sodium was 131. Received magnesium. Continue doxycycline. Sotalol discontinued per cardiology. Will arrange for home oxygen. 10/25 Patient currently on 3 L O2 nasal cannula. Will continue to wean as tolerated. Inflammatory markers improving. Blood cultures negative. Sotalol discontinued due to intermittent bradycardia per cardiology. Magnesium replaced today. Continue dexamethasone along with doxycycline. Hydrochlorothiazide reduced to once a day. Continue losartan. Continue other medications as above. Check labs in a.m. 10/24 Wean O2 as tolerated. She is currently on 4 L O2 nasal cannula. Continue remdesivirlast dose today. LFTs stable. Inflammatory markers slowly improving. I discussed the plan of care with the family yesterday. Replace magnesium. Continue sotalol. Continue Lovenox for DVT prophylaxis. Continue PPIs. Continue other medications as above
[2020-10-29] MEDS: MEROPENEM 1 GM/50 ML 1 GM in Premix Bag 1 BAG IVPB SCH ×3 (03:32→17:12)
[2020-10-29 05:08] LABS: #Lymphocytes 0.6 thou/uL (1.20-3.40); #Monocytes 0.6 thou/uL (0.11-0.59); %Eosinophils 0.2 % (0.0-10.0); %Monocytes 7.7 % (0.0-10.0); %Neutrophils 85.1 % (42.0-75.0); Hemoglobin 11.5 g/dL (12.0-16.0); Mean Corpuscular HGB CONC 31.6 g/dL (32.0-36.0); Mean Corpuscular Hemoglobin 29.3 pg (27.0-31.0); Mean Corpuscular Volume 92.9 fL (78.0-98.0); Mean Platelet Volume 9.3 fL (7.4-10.4); Platelet Count 183 thou/uL (130-400); Red Blood Cell (RBC) Count 3.92 mill/uL (4.20-5.40); White Blood Cell (WBC) Count 8.2 thou/uL (4.8-10.8)
[2020-10-29 05:38] LABS: ALT (SGPT) 11 U/L (8-55); AST (SGOT) 13 U/L (5-34); Albumin 2.7 g/dL (3.4-4.8); Alkaline Phosphatase 89 U/L (40-110); Anion Gap 13 mmol/L (10-20); BUN (Urea Nitrogen) 25 mg/dL (9.8-20.1); Bilirubin, Total 0.8 mg/dL (0.2-1.2); Calc. Creatinine Clearance 67 mL/min (70-130); Calcium 8.9 mg/dL (7.8-10.44); Carbon Dioxide 29 mmol/L (23-31); Chloride 93 mmol/L (98-107); Globulin 3.9 g/dL (2.4-3.5); Glucose 213 mg/dL (83-110); Potassium 4.6 mmol/L (3.5-5.1); Protein, Total 6.6 g/dL (5.8-8.1); Sodium 130 mmol/L (136-145)
[2020-10-29 05:39] LABS: Phosphorus 3.6 mg/dL (2.3-4.7)
[2020-10-29 05:42] LABS: CRP (Inflammatory) 2.11 mg/dL (= or < 0.5)
[2020-10-29] MEDS: Polyethylene Glycol 3350 17 GM Packet PO SCH (08:06)
[2020-10-29] MEDS: Doxycycline 100 MG CAP PO SCH ×2 (08:08→20:40)
[2020-10-29] MEDS: guaiFENesin ER 600 MG TAB PO SCH ×2 (08:08→20:40)
[2020-10-29] MEDS: Enoxaparin Sodium 40 MG/0.4 ML SYRINGE SC SCH ×2 (08:08→20:39)
[2020-10-29] MEDS: Guaifenesin DM 100-10/5 ML UDCUP PO PRN ×2 (08:13→19:03)
[2020-10-29] MEDS: Dexamethasone 4 mg/ml Vial SLOW IVP SCH (17:11)
[2020-10-29] MEDS: Ondansetron PF 4 MG/2 ML Vial IVP PRN (17:12)
--- NOTE | 2020-10-29 18:44 | PDOC.HOSPP ---
- Subjective Encounter Date: 10/29/20 Encounter Time: 14:30 Subjective: Patient seen and examined for respiratory failure/COVID-19 pneumonia. O2 saturation improving. She drops to 82-83% on ambulation. Mild dry cough. Denies any new complaints. - Objective Vital Signs & Weight: Vital Signs (12 hours) Temp Pulse Pulse Pulse Resp BP BP 10/29/20 16:30 97.6 F 97 20 10/29/20 12:00 98.0 F 76 21 H 10/29/20 09:50 70 73 150/69 H 133/63 10/29/20 08:00 10/29/20 07:25 97.9 F 61 18 BP BP Pulse Ox Pulse Ox Pulse Ox 10/29/20 16:30 169/73 H 97 10/29/20 12:00 137/66 91 L 10/29/20 09:50 90 L 92 L 10/29/20 08:00 92 L 10/29/20 07:25 132/61 98 Weight Admit Weight 145 lb Weight 144 lb 2 oz I&O: 10/28/20 10/29/20 10/30/20 06:59 06:59 06:59 Intake Total 1380 150 Output Total 800 900 Balance 580 -750 Result Diagrams: 10/29/20 04:25 10/29/20 04:24 Additional Labs: Abnormal Lab Results - Last 48 hrs 10/28/20 04:34: Sodium 131 L, Chloride 94 L, BUN 29 H, Albumin 2.8 L, Globulin 4.2 H, Albumin/Globulin Ratio 0.7 L 10/28/20 04:34: WBC 11.9 H, RBC 4.09 L, MCHC 31.7 L, Neutrophils % 85.6 H, Lymphocytes % 6.8 L, Neutrophils # 10.2 H, Lymphocytes # 0.8 L, Monocytes # 0.9 H 10/29/20 04:24: Sodium 130 L, Chloride 93 L, BUN 25 H, Albumin 2.7 L, Globulin 3.9 H, Albumin/Globulin Ratio 0.7 L 10/29/20 04:24: C-Reactive Protein 2.11 H 10/29/20 04:25: RBC 3.92 L, Hgb 11.5 L, MCHC 31.6 L, Neutrophils % 85.1 H, Lymphocytes % 7.0 L, Neutrophils # 7.0 H, Lymphocytes # 0.6 L, Monocytes # 0.6 H 10/29/20 04:25: Ferritin 293.16 H 10/29/20 04:25: D-Dimer 3.36 H Microbiology - Entire Visit 10/19/20 18:42 Venous blood - Left Arm Blood Culture - Final NO GROWTH IN 5 DAYS 10/19/20 19:05 Venous blood - Left Arm Blood Culture - Final NO GROWTH IN 5 DAYS EKG Reviewed by me: Yes (Sinus rhythm on telemetry) Hospitalist ROS - Review of Systems Respiratory: denies: cough, dry, shortness of breath, hemoptysis, SOB with excertion, pleuritic pain, sputum, wheezing, other Cardiovascular: denies: chest pain, palpitations, orthopnea, paroxysmal noc. dyspnea, edema, light headedness, other - Medication Medications: Active Medications Generic Name Dose Route Start Last Admin Trade Name Freq PRN Reason Stop Dose Admin Acetaminophen 650 mg 10/20/20 00:45 10/27/20 18:37 Acetaminophen 325 Mg Tab PO 650 mg Q4H PRN Administration Headache/Fever/Mild Pain (1-3) Benzonatate 100 mg 10/22/20 17:50 10/27/20 15:20 Benzonatate 100 Mg Cap PO 100 mg TIDPRN PRN Administration Cough Dexamethasone 6 mg 10/20/20 18:00 10/29/20 17:11 Dexamethasone 4 Mg/Ml Vial SLOW IVP 6 mg Q24H GREGORIO Administration Doxycycline Hyclate 100 mg 10/22/20 21:00 10/29/20 08:08 Doxycycline 100 Mg Cap PO 100 mg BID GREGORIO Administration Enoxaparin Sodium 40 mg 10/27/20 21:00 10/29/20 08:08 Enoxaparin Sodium 40 Mg/0.4 Ml Syringe SC 40 mg 0900,2100 GREGORIO Administration Guaifenesin 600 mg 10/27/20 21:00 10/29/20 08:08 Guaifenesin Er 600 Mg Tab PO 600 mg Q12HR GREGORIO Administration Guaifenesin/Dextromethorphan 15 ml 10/21/20 23:19 10/29/20 08:13 Guaifenesin Dm 100-10/5 Ml Udcup PO 15 ml Q4H PRN Administration Cough Hydralazine HCl 10 mg 10/20/20 00:45 10/21/20 18:35 Hydralazine 20 Mg/Ml Vial SLOW IVP 10 mg Q6H PRN Administration SBP GREATER THAN 160 Meropenem 1 gm/ Device 50 mls @ 100 mls/hr 10/27/20 17:00 10/29/20 17:12 IVPB 50 mls 0100,0900,1700 GREGORIO Administration Ondansetron HCl 4 mg 10/20/20 00:45 10/29/20 17:12 Ondansetron Pf 4 Mg/2 Ml Vial IVP 4 mg Q6H PRN Administration Nausea/Vomiting use 1st Pantoprazole Sodium 40 mg 10/23/20 09:00 10/29/20 08:08 Pantoprazole 40 Mg Tab PO 40 mg DAILY GREGORIO Administration Polyethylene Glycol 17 gm 10/20/20 09:00 10/29/20 08:06 Polyethylene Glycol 3350 17 Gm Packet PO 17 gm DAILY GREGORIO Administration Sodium Chloride 10 ml 10/21/20 09:00 10/29/20 08:09 Flush - Normal Saline 10 Ml Syringe IVF 10 ml Q12HR GREGORIO Administration - Exam General Appearance: awake alert Neck: supple, no JVD Heart: RRR, no gallops Respiratory: no wheezes, rales, rhonchi Gastrointestinal: soft, non-tender, normal bowel sounds, no rigidity Extremities: no cyanosis Neurological: no new deficit Hosp A/P - Plan DVT proph w/lovenox, DVT proph w/SCDs 74-year-old female with hypertension, esophageal cancer arrhythmias in the past presented to the emergency room on 10/19 with shortness of breath and cough. Her work-up was consistent with bilateral pneumonia. She was started on O2 supplementation with dexamethasone as well as remdesivir. She also had NSVT on the hand former. Impression: Acute hypoxic respiratory failure due to extensive bilateral COVID-19 pneumonia Nonsustained ventricular tachycardia Hypertension Hypomagnesemia Chronic anemia suspected due to nutritional deficiency CKD stage II Hyponatremia Abnormal LFTs probably due to COVID-19 Poor IV access - s/p PICC line Plan: Hemodynamically stable. O2 requirement improving. WBC count is back to normal today. D-dimer, CRP improving. Blood cultures negative. Will continue antibiotics overnight. Patient can probably be discharged in a.m. on steroid taper. Plan of care was discussed with the patient and her family 10/28 Wean O2 as tolerated. Will recheck inflammatory markers in a.m. Replace magnesium. Continue empiric antibiotics. Continue Lovenox for DVT prophylaxis. Continue physical therapy. DC in a.m. if stable 10/27 Patient remains on 3 L oxygen nasal cannula. Inflammatory markers worsening. D-dimer now 4.97 with CRP of 5.51 and ferritin of 231. All the 3 markers have worsened today. Chest x-ray today showed bilateral pneumonia. Continue supportive care. Not stable for discharge. Add meropenem due to possible superinfection versus aspiration pneumonia. Case discussed with the family over the phone. 10/26 Patient on 3 L O2 nasal cannula. WBC count 14.7 from 11.7 without significant new left shift. This could be due to steroids. Patient also had sodium of 129 today for which diuretics/ARB were held. Repeat sodium was 131. Received magnesium. Continue doxycycline. Sotalol discontinued per cardiology. Will arrange for home oxygen. 10/25 Patient currently on 3 L O2 nasal cannula. Will continue to wean as tolerated. Inflammatory markers improving. Blood cultures negative. Sotalol discontinued due to intermittent bradycardia per cardiology. Magnesium replaced today. Continue dexamethasone along with doxycycline. Hydrochlorothiazide reduced to once a day. Continue losartan. Continue other medications as above. Check labs in a.m. 10/24 Wean O2 as tolerated. She is currently on 4 L O2 nasal cannula. Continue remdesivirlast dose today. LFTs stable. Inflammatory markers slowly improving. I discussed the plan of care with the family yesterday. Replace magnesium. Continue sotalol. Continue Lovenox for DVT prophylaxis. Continue PPIs. Continue other medications as above
[2020-10-29] MEDS ORDERED: Melatonin 3 MG TAB PO SCH (21:00)
[2020-10-30] MEDS: MEROPENEM 1 GM/50 ML 1 GM in Premix Bag 1 BAG IVPB SCH ×2 (01:13→08:56)
[2020-10-30] MEDS: Guaifenesin DM 100-10/5 ML UDCUP PO PRN (08:53)
[2020-10-30] MEDS: Polyethylene Glycol 3350 17 GM Packet PO SCH (08:54)
[2020-10-30] MEDS: Enoxaparin Sodium 40 MG/0.4 ML SYRINGE SC SCH (08:54)
[2020-10-30] MEDS: guaiFENesin ER 600 MG TAB PO SCH (08:55)
[2020-10-30] MEDS: Doxycycline 100 MG CAP PO SCH (08:55)
[2020-10-30 12:58] VITALS: BP 123/58; TEMP 98.6
--- NOTE | 2020-10-30 15:50 | PDOC.DS.DS ---
Provider - Provider Date of Admission: 10/19/20 21:52 Date of Discharge: 10/30/20 Admitting Provider: Jg Whitehead MD Primary Care Physician: Satnam Tian MD Course - Hospital Course Hospital Course: Patient is a 74-year-old female with hypertension and cardiac arrhythmias in the past presented to the emergency room with shortness of breath on 10/19. Her chest x-ray was consistent with bilateral infiltrates consistent with Covid pneumonia. CT angiogram of the chest was negative for pulmonary embolism. It showed changes consistent with extensive bilateral Covid pneumonia. She was monitored on the Covid unit and was started on O2 supplementation, Decadron, remdesivir, empiric antibiotics along with supportive care. She required O2 up to 5 L. Patient has been gradually weaned off oxygen. Home oxygen has been arranged as well. Patient was also found to have nonsustained ventricular tachycardia despite being on sotalol. Due to significant bradycardia cardiology recommended to discontinue sotalol. Due to poor IV access she also required PICC line that was discontinued at discharge. Final diagnosis: Acute hypoxic respiratory failure due to extensive bilateral COVID-19 pneumonia Nonsustained ventricular tachycardia Hypertension Hypomagnesemia Chronic anemia suspected due to nutritional deficiency CKD stage II Hyponatremia Abnormal LFTs probably due to COVID-19 Poor IV access - s/p PICC line Resuscitation Status: 10/20/20 00:45 Resuscitation Status Routine Resuscitation Status: FULL: Full Resuscitation - Labs Lab Results: 10/29/20 04:25 10/29/20 04:24 Abnormal Lab Results - Last 48 hrs 10/29/20 04:24: Sodium 130 L, Chloride 93 L, BUN 25 H, Albumin 2.7 L, Globulin 3.9 H, Albumin/Globulin Ratio 0.7 L 10/29/20 04:24: C-Reactive Protein 2.11 H 10/29/20 04:25: RBC 3.92 L, Hgb 11.5 L, MCHC 31.6 L, Neutrophils % 85.1 H, Lymphocytes % 7.0 L, Neutrophils # 7.0 H, Lymphocytes # 0.6 L, Monocytes # 0.6 H 10/29/20 04:25: Ferritin 293.16 H 10/29/20 04:25: D-Dimer 3.36 H Microbiology - Entire Visit 10/19/20 18:42 Venous blood - Left Arm Blood Culture - Final NO GROWTH IN 5 DAYS 10/19/20 19:05 Venous blood - Left Arm Blood Culture - Final NO GROWTH IN 5 DAYS - Physical Exam Vitals: Vital Signs (12 hours) Temp Pulse Resp BP Pulse Ox 10/30/20 12:00 98.6 F 69 17 123/58 L 96 10/30/20 08:00 97.8 F 65 16 138/66 94 L 10/30/20 04:10 98.0 F 67 16 135/65 100 Weight Admit Weight 145 lb Weight 144 lb 2 oz Physical Exam: The patient was seen and examined on the day of discharge. Plan - Discharge Medications Prescriptions: Aspirin [Aspirin EC] 81 mg PO DAILY #30 tablet. Multivitamin [Multi-Vitamin Daily] 1 tablet PO DAILY #30 tablet predniSONE 20 mg PO ASDIR #10 tab Pantoprazole [Protonix] 40 mg PO DAILY #30 tab Doxycycline [Vibramycin] 100 mg PO BID #10 cap Ascorbic Acid [Vitamin C] 1,000 mg PO DAILY #30 tablet Zinc Sulfate 220 mg PO DAILY #30 cap Home Medications: Medication Instructions Recorded Confirmed Type Prochlorperazine Maleate 10 mg PO TID 10/20/20 10/20/20 History [Compazine] Ascorbic Acid [Vitamin C] 1,000 mg PO DAILY #30 tablet 10/27/20 Rx Aspirin [Aspirin EC] 81 mg PO DAILY #30 tablet. 10/27/20 Rx Doxycycline [Vibramycin] 100 mg PO BID #10 cap 10/27/20 Rx Multivitamin [Multi-Vitamin Daily] 1 tablet PO DAILY #30 tablet 10/27/20 Rx Pantoprazole [Protonix] 40 mg PO DAILY #30 tab 10/27/20 Rx Zinc Sulfate 220 mg PO DAILY #30 cap 10/27/20 Rx predniSONE 20 mg PO ASDIR #10 tab 10/27/20 Rx Candesartan/Hydrochlorothiazid 1 tablet PO BID #0 10/30/20 10/20/20 Rx [Candesartan-Hctz 16-12.5 mg Tb] guaiFENesin ER [Mucinex] 600 mg PO Q12HR tab 10/30/20 Rx Allergies: levofloxacin [From Levaquin] Allergy (Verified 10/20/20 00:06) Penicillins Allergy (Verified 10/20/20 00:06) - Discharge Instructions Discharge Instructions:: BMP in 1 weeksPCP to arrange and follow - Follow up Plan Referrals: Hussein Morton MD [Active] - Satnam Tian MD [Primary Care Provider] - 7 Days Danny Meza MD [Active] - 7 Days Disposition: HOME HEALTH Quality - Care Measures CORE MEASURES:: N/A
== END 2020-10-30 13:30 | disposition home health service (06) | DRG 177 ==
LOC: ERS 17:23 → OBSVTOIN 21:52 → 2SW 21:52
PROVIDERS: ADMIT Internal Medicine; ATTEND Internal Medicine
PROC: 8E0ZXY6 Isolation (ICD-10-PCS; principal; 2020-10-20)
PROC: XW033E5 Introduction of Remdesivir Anti-infective into Peripheral Vein, Percutaneous Approach, New Technology Group 5 (ICD-10-PCS; 2020-10-20)
PROC: 02HV33Z Insertion of Infusion Device into Superior Vena Cava, Percutaneous Approach (ICD-10-PCS; 2020-10-21)
PROC: B548ZZA Ultrasonography of Superior Vena Cava, Guidance (ICD-10-PCS; 2020-10-21)
DX: U07.1 COVID-19 (principal); J12.82 Pneumonia due to coronavirus disease 2019; J96.01 Acute respiratory failure with hypoxia; E87.1 Hypo-osmolality and hyponatremia; I47.2 Ventricular tachycardia; I12.9 Hypertensive chronic kidney disease with stage 1 through stage 4 chronic kidney disease, or unspecified chronic kidney disease; D53.9 Nutritional anemia, unspecified; I48.91 Unspecified atrial fibrillation; N18.2 Chronic kidney disease, stage 2 (mild); R00.1 Bradycardia, unspecified; E83.42 Hypomagnesemia; Z88.0 Allergy status to penicillin; Z88.1 Allergy status to other antibiotic agents; Z85.028 Personal history of other malignant neoplasm of stomach; Z85.01 Personal history of malignant neoplasm of esophagus; Z90.49 Acquired absence of other specified parts of digestive tract; Z90.710 Acquired absence of both cervix and uterus; Z79.899 Other long term (current) drug therapy
CPT/HCPCS: 0240U; 36415; 36569; 71045; 71046; 71275; 80048; 80053; 80076; 82728; 83605; 83735; 84100; 84484; 85025; 85379; 86140; 87040; 93005; 93010; 96374; 96375; C1751; G0378; J0360; J0456; J0696; J1100; J1644; J1650; J2185; J2405; J3475; J3490; J7050; Q9967